=== PATIENT | female | born 1955 | race Caucasian/White ===

== ENCOUNTER 2020-01-31 10:05 | Outpatient (CLI) | payer OTHER, SELFPAY ==
--- NOTE | ~2020-01-31 | XR_ITS ---
XR chest 2V 01/31/2020 10:20 Indication: Bronchitis Procedure: PA and lateral views of the chest Comparison: Comparison to multiple prior studies sequentially, with oldest reviewed study dated 05/31. Findings: No focal air space disease, pulmonary edema, pleural effusion or suspected pneumothorax. He art size normal. Chronic left basilar atelectasis/scarring. Chronic apical pleural thickening/scarrin g. Impression: 1: No acute cardiopulmonary disease. Reviewed, dictated and finalized at location I. Impression: 1: No acute cardiopulmonary disease.
== END 2020-01-31 10:06 | disposition home or self-care (01) ==
LOC: ANHIMG 10:07
PROVIDERS: PCP Family Medicine; Visit Provider Family Medicine
DX: J20.9 Acute bronchitis, unspecified (principal)
CPT/HCPCS: 71046

== ENCOUNTER 2020-06-03 09:08 | Outpatient (CLI) | payer OTHER, SELFPAY ==
--- NOTE | ~2020-06-03 | XR_ITS ---
XR chest 2V DATE: 06/03/2020 09:31 INDICATION: Cough. Bronchitis. TECHNIQUE: PA and lateral views COMPARISON: 01/31/2020 PA and lateral chest FINDINGS: Normal heart size. Aortic calcification and mild unfolding. No hilar or mediastinal enlarge ment. No pulmonary infiltrate or consolidation, pleural effusion or pulmonary vascular congestion or pneumothorax is detected. Diffuse osteopenia. Degenerative changes of the thoracic spine. IMPRESSION: No active cardiopulmonary disease or significant change since 02/17/2020 Reviewed, dictated and finalized at location A. IMPRESSION: No active cardiopulmonary disease or significant change since 2019
[2020-06-03 11:04] LABS: Alanine Aminotransferase 19 U/L (4-35); Albumin Level 4.3 g/dL (3.5-5.1); Alkaline Phosphatase 73 U/L (38-126); Amylase 56 U/L (30-110); Anion Gap 6 mmol/L (8-16); Aspartate Amino Transferase 30 U/L (14-36); Bilirubin,Total 1.2 mg/dL (0.2-1.3); Blood Urea Nitrogen 9 mg/dL (7-17); Calcium 9.5 mg/dL (8.4-10.2); Carbon Dioxide 28 mmol/L (22-30); Chloride 105 mmol/L (98-107); Estimated Glomerular Filt Rate > 60; Glucose 98 mg/dL (65-105); Lipase 21 U/L (23-300); Potassium 4.3 mmol/L (3.4-5.0); Sodium 139 mmol/L (137-145)
[2020-06-06 12:58] LABS: GGT 48 U/L (3-65)
--- NOTE | 2020-06-14 12:09 | WPDSIXMINUTE ---
Six Minute Walk Six Minute Walk: The patients O2 sats started at 96% and dropped as low as 96% Total walk distance 304.8 meters conclusion: This patient does not qualify for home oxygen use.
== END 2020-06-03 09:09 | disposition home or self-care (01) ==
PROVIDERS: PCP Family Medicine; Visit Provider Family Medicine
DX: J44.0 Chronic obstructive pulmonary disease with (acute) lower respiratory infection (principal); J20.9 Acute bronchitis, unspecified; K75.9 Inflammatory liver disease, unspecified
CPT/HCPCS: 36415; 71046; 80053; 82150; 82977; 83690; 94618

== ENCOUNTER 2020-06-05 06:52 | Outpatient (NON) | payer OTHER, SELFPAY ==
[2020-06-05 23:09] LABS: SARS-CoV-2 RNA PCR Negative
== END 2020-06-05 06:53 ==
PROVIDERS: PCP Family Medicine; Visit Provider Family Medicine
DX: R09.89 Other specified symptoms and signs involving the circulatory and respiratory systems (principal); Z20.828 Contact with and (suspected) exposure to other viral communicable diseases
CPT/HCPCS: 87635; C9803; U0003

== ENCOUNTER 2020-07-08 10:34 | Outpatient (NON) | payer OTHER, SELFPAY ==
[2020-07-09 01:06] LABS: SARS-CoV-2 RNA PCR Negative
== END 2020-07-08 10:35 ==
LOC: ANHCOVIDDT 10:35
PROVIDERS: PCP Family Medicine; Visit Provider Family Medicine
DX: R09.89 Other specified symptoms and signs involving the circulatory and respiratory systems (principal); Z20.828 Contact with and (suspected) exposure to other viral communicable diseases
CPT/HCPCS: 87635; C9803; U0003

== ENCOUNTER 2020-09-06 14:24 | Outpatient (CLI) | payer OTHER, SELFPAY ==
--- NOTE | 2020-09-06 | ECHO_ITS ---
Patient Info Name: Aurora Hill Age: 65 years : 1955 Gender: Female Ht: 65 in Wt: 146 lbs BSA: 1.75 m2 HR: 92 bpm BP: 178 / 92 mmHg Technical Quality: Good Exam Date: 09/06/2020 3:11 PM Exam Location: [facility] Patient Status: Outpatient Admit Date: 09/06/2020 Staff Ordering Physician: ManuelNiesha APRN Nickel Plant Operator: Annalee Daniels RDCS Attending Provider: Paddy*Niesha APRN Exam Type: CA echo doppler color flow Study Info Indications - PULM HTN Complete two-dimensional, color flow and Doppler transthoracic echocardiogram is performed. Summary 1. Complete two-dimensional, color flow and Doppler transthoracic echocardiogram is performed. 2. Left ventricular chamber dimension is normal. 3. Left ventricular systolic function is normal, estimated at 60-65%. 4. The left ventricular diastolic function is grade I diastolic dysfunction. 5. E/e' 10 is mildly elevated. 6. There is mild aortic valve sclerosis. 7. No pulmonary hypertension, estimated pulmonary arterial systolic pressure is 34 mmHg. 8. There is trace pulmonic regurgitation. Left Ventricle E/e' 10 is mildly elevated. Left ventricular chamber dimension is normal. Left ventricular systolic function is normal, estimated at 60-65%. The left ventricular diastolic function is grade I diastolic dysfunction. Right Ventricle Right ventricular chamber dimension is normal. Right ventricular systolic function is normal. Left Atria Left atrial chamber dimension is normal. Right Atria Right atrial chamber dimension is normal. Aortic Valve The aortic valve is trileaflet. There is mild aortic valve sclerosis. There is no aortic valve stenosis. There is no aortic valve regurgitation. Pulmonic Valve There is trace pulmonic regurgitation. Mitral Valve There is no mitral valve stenosis. There is no mitral valve regurgitation. Tricuspid Valve There is no tricuspid valve regurgitation. No pulmonary hypertension, estimated pulmonary arterial systolic pressure is 34 mmHg. Pericardium/Pleural There is no pericardial effusion. Inferior Vena Cava Normal inferior vena cava with >50% collapse upon inspiration consistent with normal right atrial pressure, 5 mmHg. Aorta The aortic root size at the sinus of Valsalva is normal. Left Ventricular Outflow Tract Name Value Normal LVOT 2D LVOT Diameter 2.0 cm LVOT Doppler LVOT Peak Gradient 5 mmHg LVOT Mean Gradient 3 mmHg LVOT VTI 21 cm LVOT VTI/AV VTI Ratio 0.9 LVOT Stroke Volume 65 ml LVOT CO 13.5 l/min LVOT CI 7.7 l/min/m2 Pulmonic Valve Name Value Normal PV Doppler PV Peak Gradient
== END 2020-09-06 14:25 | disposition home or self-care (01) ==
PROVIDERS: PCP Family Medicine; Visit Provider Nurse Practitioner Gerontology
DX: I27.20 Pulmonary hypertension, unspecified (principal)
CPT/HCPCS: 93306

== ENCOUNTER 2020-11-20 09:35 | Outpatient (CLI) | payer OTHER, SELFPAY ==
--- NOTE | ~2020-11-20 | XR_ITS ---
XR lumbar spine 6V w bending DATE: 11/20/2020 10:01 INDICATION: Low back pain. Hip, knee pain. TECHNIQUE: AP, lateral, bilateral oblique and coned lateral lumbosacral views. Flexion and extension lateral views. COMPARISON: 05/26/2017 lumbar spine FINDINGS: There is diffuse osteopenia. There is moderate loss of interspace height at L3-4. There is severe degenerative disc disease at the remaining lumbar and lumbosacral interspaces. The de generative disc disease is increased in severity in particular at L1 to and L4-5 since 05/26/2017. There is degenerative change at the apophyseal joints with associated grade 1 anterolisthesis at L4-5 , stable since 05/26/2017. No spondylolysis. No fracture or bone destruction. The lumbar pedicles are intact. No evidence of instability on flexion or extension. The sacroiliac joints are intact. There is extensive calcification of the abdominal aorta and iliac arteries; no evidence of abdominal aortic aneurysm. Status post cholecystectomy. IMPRESSION: Diffuse osteopenia Moderate loss of height at L3-4 interspace on severe degenerative disc disease at the remaining lumba r and lumbosacral interspaces, increased since 05/26/2017 Stable grade 1 anterolisthesis at L4-5 due to degenerative change at the apophyseal joints since 05/26 Reviewed, dictated and finalized at location B. IMPRESSION: Diffuse osteopenia Moderate loss of height at L3-4 interspace on severe degenerative disc disease at the remaining lumbar and lumbosacral interspaces, increased since 05/26/2017 Stable grade 1 anterolisthesis at L4-5 due to degenerative change at the apophy seal joints since 05/26/2017
--- NOTE | ~2020-11-20 | XR_ITS ---
XR knee LT 2V DATE: 11/20/2020 10:01 INDICATION: Left knee pain. No injury. TECHNIQUE: AP and lateral views COMPARISON: None FINDINGS: No fracture or dislocation or joint effusion. No periosteal reaction or bone destruction. There is mild osteoarthritis including mild particular spurring at the medial compartment. No radiopaque intra-articular loose body or chondrocalcinosis. IMPRESSION: Mild osteoarthritis at the medial compartment Reviewed, dictated and finalized at location B.
--- NOTE | ~2020-11-20 | XR_ITS ---
XR hip BI 2V w AP pelvis DATE: 11/20/2020 10:01 INDICATION: Low back pain, left hip pain TECHNIQUE: AP pelvis. AP and lateral views of both hips. COMPARISON: None FINDINGS: Prominent degenerative disc disease at L4-5 and L5-S1. The pubic symphysis and sacroiliac joints are intact. No pelvic fracture or bone destruction. Hip joint spaces are symmetric and well preserved. No fracture, dislocation, avascular necrosis or bruno ne destruction of either hip is detected. IMPRESSION: Prominent degenerative disc disease at L4-5 and L5-S1 No significant abnormality of the pelvis or hips Reviewed, dictated and finalized at location B.
== END 2020-11-20 09:36 | disposition home or self-care (01) ==
PROVIDERS: PCP Family Medicine; Visit Provider Anesthesiology Pain Medicine
DX: M51.37 Other intervertebral disc degeneration, lumbosacral region (principal); M85.88 Other specified disorders of bone density and structure, other site; M17.12 Unilateral primary osteoarthritis, left knee
CPT/HCPCS: 72114; 73521; 73560

== ENCOUNTER → 2020-12-12 07:59 | Outpatient (CLI) | payer OTHER, SELFPAY ==
[2020-12-12 17:41] LABS: SARS-CoV-2 RNA PCR Negative
== END ==
PROVIDERS: PCP Family Medicine; Visit Provider Family Medicine
DX: R68.89 Other general symptoms and signs (principal); Z20.822 Contact with and (suspected) exposure to COVID-19
CPT/HCPCS: C9803; U0003; U0005

== ENCOUNTER 2021-08-20 07:17 | Emergency (ER) | payer OTHER, SELFPAY ==
--- NOTE | ~2021-08-20 | XR_ITS ---
EXAMINATION: XR elbow RT min 3V DATE: 08/20/2021 12:02 INDICATION: Right elbow swelling. TECHNIQUE: 4 views of right elbow were obtained. COMPARISON: None. FINDINGS: Bone alignment is normal. No fracture. Joint spaces are well maintained. There is no elbow joint effusion. There is posterior soft tissue swelling. IMPRESSION: 1. No fracture. Reviewed, dictated and finalized at location A. TIONAL TECHNICAL EDUCATION DIRECTOR IMPRESSION: 1. No fracture.
--- NOTE | ~2021-08-20 | XR_ITS ---
EXAMINATION: XR chest 2V DATE: 08/20/2021 12:02 INDICATION: Swelling. TECHNIQUE: Frontal and lateral views of the chest were obtained. COMPARISON: Chest 2 views 06/03/2020 FINDINGS: There is mild scarring at the lung apices. There is mild atelectasis in the lower lung zone s. No pleural effusion or pneumothorax. The heart size is normal. There are changes of anterior fusio n procedure in cervical spine. IMPRESSION: 1. Mild scarring at the lung apices and mild atelectasis in the lower lung zones. Reviewed, dictated and finalized at location A. R COMMISSIONER IMPRESSION: 1. Mild scarring at the lung apices and mild atelectasis in the lower lung zone s.
--- NOTE | ~2021-08-20 | XR_ITS ---
EXAMINATION: XR foot LT min 3V DATE: 08/20/2021 12:02 INDICATION: Left heel pain. TECHNIQUE: 4 views of left foot were obtained. COMPARISON: None. FINDINGS: Bone alignment is normal. There is an old healed fracture of diaphysis of fifth metatarsal. No acute fracture. There is mild osteoarthritis of first metatarsophalangeal joint. IMPRESSION: 1. No acute fracture. Reviewed, dictated and finalized at location A. LLIGENCE SUPPORT OFFICER IMPRESSION: 1. No acute fracture.
--- NOTE | ~2021-08-20 | US_ITS ---
EXAMINATION: US venous doppler UE RT DATE: 08/20/2021 14:10 INDICATION: Right upper extremity swelling TECHNIQUE: Packer scale images with and without compression and Doppler images of the right upper extre mity veins were obtained. COMPARISON: None. FINDINGS: The right internal jugular vein, subclavian vein, axillary vein, brachial veins, basilic vein, cephal ic vein, radial vein, and ulnar vein are patent. IMPRESSION: 1. Patent right upper extremity veins. No evidence of deep venous thrombosis. Reviewed, dictated and finalized at location A. EM CONFIGURATION SPECIALIST
--- NOTE | ~2021-08-20 | US_ITS ---
EXAMINATION:US venous doppler LE BI INDICATION:Leg swelling TECHNIQUE: Multiple grayscale, color flow and Doppler images of the right and left lower extremity de ep venous systems were obtained and reviewed. COMPARISON:03/13/2013 FINDINGS: The common femoral, superficial femoral and popliteal veins demonstrate normal respiratory variation, augmentation and compressibility. Color flow is also seen within the posterior tibial, pe roneal, greater saphenous and profunda veins. IMPRESSION: 1: No lower extremity deep venous thrombosis. Reviewed, dictated and finalized at location A. ATING SCREEN OPERATOR
[2021-08-20 07:19] VITALS: PULSE 76; RESP 18; TEMP 36.6; O2SAT 95
--- NOTE | 2021-08-20 09:35 | PC.NURSE ---
Pt ambulatory outside to smoke.
[2021-08-20 09:36] VITALS: BP 132/60; PULSE 79; RESP 18; O2SAT 95
--- NOTE | 2021-08-20 11:40 | ECG_ITS ---
Measurements Intervals [place] Rate: 75 P: 70 NH: 121 QRS: 51 QRSD: 90 T: 48 QT: 406 QTc: 454 Interpretive Statements SINUS RHYTHM POSSIBLE LEFT ATRIAL ENLARGEMENT BORDERLINE ECG Electronically Signed On 08-20-2021 13:45:17 STATIONARY EQUIPMENT MECHANIC by Fausto Dacosta D.O.
--- NOTE | 2021-08-20 11:57 | ED.GENADULT ---
HPI - General Adult General Chief complaint: Wound/Laceration Stated complaint: foot wound since wednesday Time Seen by Provider: 08/20/21 11:15 Source: patient and RN notes reviewed Mode of arrival: EMS Limitations: no limitations History of Present Illness HPI narrative: This is a 66 year old female who presents for evaluation of bilateral leg swelling and left heel wound. Patient states she went for evaluation of bilateral feet swelling on Wednesday. She had labs and chest xray performed but she left before she could be treated. She reports her feet swelling has improved but she woke up with blister to her left heel so she called 911. This blister is painful and it is causing radiating pain to left leg. She is also complaining of right elbow swelling and pain without trauma. She denies chest pain, nasuea, vomiting or fever. She is complaining of shortness of breath and she states she has COPD. Related Data Allergies Allergy/AdvReac Type Severity Reaction Status Date / Time linezolid Allergy Intermediate Rash Verified 08/20/21 11:10 amoxicillin Allergy Mild Unknown Verified 08/20/21 11:10 paroxetine Allergy Mild Unknown Verified 08/20/21 11:10 Quinolones Allergy Mild Unknown Verified 08/20/21 11:10 amitriptyline Allergy Unknown Unknown Verified 08/20/21 11:10 ciprofloxacin Allergy Unknown Swelling Verified 08/20/21 11:10 BUPROPION HCL Allergy Unknown Unknown Uncoded 08/20/21 11:10 PROCHLORPERAZINE EDISYLATE Allergy Unknown Unknown Uncoded 08/20/21 11:10 PROCHLORPERAZINE MALEATE Allergy Unknown Unknown Uncoded 08/20/21 11:10 Review of Systems Review of Systems: All systems reviewed & are unremarkable except as noted in HPI and below PMFSH Past Medical History Medical History (Updated 08/20/21 @ 15:11 by Michelle Toribio MD) Atrial fibrillation Emphysema/COPD Hepatitis C Family History Family History (Updated 11/19/11 @ 09:17 by DOCTOR UNKNOWN) Other Diabetes mellitus Family history of arthritis Family history of cardiovascular disease Hypertension Social History Social History (Updated 08/20/21 @ 15:05 by Michelle Toribio MD) Smoking status: Current every day smoker Alcohol intake: never Exam Const: General: no acute distress and alert Orientation/consciousness: patient oriented x3 HENMT: Head: normocephalic and atraumatic Ears: TM's normal bilaterally Face and sinus: face symmetric Mouth: Yes Normal oral and palatal mucosa present, Yes lip normal, Yes oropharynx normal and Yes moist mucous membranes Throat: uvula midline Eyes: EOM: EOMs intact bilaterally Chest: Chest palpation & inspection: normal inspection of the chest Resp: Effort & Inspection: normal respiratory effort and no retractions Auscultation: clear to auscultation bilaterally Cardio: Rate: regular rate Rhythm: regular rhythm Heart sounds: no murmurs GI: GI Palp: Yes Soft to palpation, No Tenderness to palpation present (GI) and No Guarding due to palpation present (GI) Auscultation: normal bowel sounds Skin: Other: left heel 6 cm intact blister, appears serous, no surrounding erythema Neuro: General: patient oriented x3, moves all extremities and CN's II-XI intact bilaterally Extrem: General: edema bilateral (mild lower extremity; right elbow with mild edema ) Other: left heell with intact blister, no surround erythma Psych: Mental Status: mental status grossly normal Affect: normal affect Course Reevaluation(s) Reevaluation #1: I reviewed with patient labs and imaging. No dvt found, no congestive heart failure. She is already on antibiotics but she is unable to state name. She will continue ointment given as well. Date: 08/20/21 Time: 15:04 Vital Signs Vital signs: Vital Signs Temperature 98 F 08/20/21 07:19 Pulse Rate 76 08/20/21 07:19 Respiratory Rate 18 08/20/21 07:19 Pulse Oximetry 95 08/20/21 07:19 Temperature 98 F 08/20/21 07:19 Pulse Rate 79 08/20/21 09:36 Re
[2021-08-20 12:17] LABS: Alveolar/Arterial O2 Gradient 41.6 mmHg; Base Excess ABG -0.2 mEq/l (+/-2.0); Carboxyhemoglobin 6.5 % THb (0-2.0); Fractional Inspired Oxygen 21 %; HCO3 ABG 24.4 mEq/l (22.0-26.0); Methemoglobin ABG 0.1 %THb (0-1.5); Oxygen Saturation ABG 91.3 % (95.0-100.0); PCO2 ABG 39.9 mmHg (35.0-45.0); PO2 ABG 60.4 mmHg (80.0-100.0); PO2 FiO2 Ratio Arterial Blood 2.88 %; Reduced Hemoglobin 8.3 %THb (0-5.0); Total Hemoglobin 13.4 g/dL (12.0-18.0); pH ABG 7.405 (7.350-7.450)
[2021-08-20 12:19] LABS: Device ROOM AIR; Modified Allen's Test Pass; Oxyhemoglobin 85.1 % THb (90.0-100.0); Site Drawn RIGHT RADIAL
--- NOTE | 2021-08-20 12:42 | PC.NURSE ---
Pt requesting her home valium and gabapentin. States she is out of these medications and hasn't had them in a few days. MD Toribio made aware.
[2021-08-20 12:43] LABS: Basophils Percent Auto 0.4 % (0.2-1.2); Eosinophils Absolute Auto 0.2 K/mm3 (0-0.3); Eosinophils Percent Auto 3.6 % (0-4.4); Hematocrit 40.6 % (37.0-47.0); Hemoglobin 13.5 g/dL (12.0-15.0); Immature Granulocyte Absolute 0.08 K/mm3 (0.00-0.031); Immature Granulocyte Percent A 1.5 % (0-0.5); Immature Platelet Fraction Pct 10.2 % (0.9-11.2); Lymphocytes Absolute Auto 0.93 K/mm3 (0.9-3.2); Lymphocytes Percent Auto 17.6 % (18.3-44.2); Mean Corpuscular HGB Conc 33.3 g/dl (32-36); Mean Corpuscular Volume 93.3 fl (80-100); Mean Platelet Volume 12.4 fl (7.4-10.4); Monocytes Absolute Auto 0.4 K/mm3 (0.1-0.6); Neutrophils Absolute Auto 3.6 K/mm3 (1.3-6.7); Neutrophils Percent Auto 68.9 % (45.5-73.1); Platelet Count Result 99 k/mm3 (150-375); Red Blood Count 4.35 M/mm3 (4.2-5.4); Red Cell Distribution Width 13.3 % (11.5-14.5); White Blood Count 5.3 K/mm3 (4.5-10.0)
[2021-08-20 12:44] LABS: INR 1.1; Prothrombin Time 13.6 Seconds (11.1-14.7)
[2021-08-20 12:45] LABS: Partial Thromboplastin Time 28.4 SECONDS (22.3-36.8)
[2021-08-20 12:46] LABS: Alanine Aminotransferase 47 U/L (4-35); Albumin Level 4.3 g/dL (3.5-5.1); Alkaline Phosphatase 105 U/L (38-126); Anion Gap 5 mmol/L (8-16); Aspartate Amino Transferase 84 U/L (14-36); Bilirubin,Total 1.4 mg/dL (0.2-1.3); Blood Urea Nitrogen 14 mg/dL (7-17); Carbon Dioxide 28 mmol/L (22-30); Chloride 99 mmol/L (98-107); Estimated CRCL calculation 60 ml/min; Estimated Glomerular Filt Rate > 60; Glucose 132 mg/dL (65-110); Potassium 4.3 mmol/L (3.4-5.0); Sodium 132 mmol/L (137-145)
[2021-08-20 12:52] LABS: NT Pro B Type Natriuretic Pept 44 pg/mL (5-100)
[2021-08-20 13:28] LABS: Add Urine Microscopic? YES; Appearance Urine Clear (Clear); Bilirubin Urine Negative (Negative); Blood Urine Negative (Negative); Color Urine Yellow (Yellow); Glucose Urine UA Negative (Negative); Ketones Urine Negative (Negative); Leukocyte Esterase Ur Negative LEU/UL (Negative); Mucus Urine Rare /lpf; Nitrate Urine Negative (Negative); Protein Urine Negative (Negative); RBC Urine 0-2 /hpf (0-2); Squamous Epithelial Cell Urine Few /hpf (Few); WBC Urine 0-3 /hpf
== END 2021-08-20 15:41 | disposition home or self-care (01) ==
PROVIDERS: Emergency Provider General Practice
DX: R60.0 Localized edema (principal); R74.01 Elevation of levels of liver transaminase levels; R23.8 Other skin changes; I48.91 Unspecified atrial fibrillation; J43.9 Emphysema, unspecified; F17.200 Nicotine dependence, unspecified, uncomplicated; R94.31 Abnormal electrocardiogram [ECG] [EKG]
CPT/HCPCS: 36415; 36600; 71046; 73080; 73630; 80053; 81001; 82375; 82805; 83050; 83880; 85025; 85055; 85610; 85730; 86140; 93005; 93970; 93971; 99284

== ENCOUNTER 2021-10-21 16:04 | Emergency (ER) | payer OTHER, SELFPAY ==
[2021-10-21] VITALS (7 sets, daily range): BP systolic 150–154; BP diastolic 78–92; PULSE 90–112; RESP 16–26; TEMP 36.8–37.1; O2SAT 92–98
--- NOTE | ~2021-10-21 | XR_ITS ---
XR chest 2V 10/21/2021 17:17 Indication: Shortness of breath Procedure: PA and lateral views of the chest Comparison: Comparison to multiple prior studies sequentially, with oldest reviewed study dated 05/30. Findings: There are chronic interstitial changes of the lower lungs. No acute focal pneumonia, edema or effusion. There are surgical changes at the cervicothoracic junction. Heart size is normal. Impression: 1: No acute cardiopulmonary disease. Reviewed, dictated and finalized at location B. EUR/MASSEUSE Impression: 1: No acute cardiopulmonary disease.
[2021-10-21] MEDS: diazePAM (*CRX) 5 MG TABLET PO (17:21)
[2021-10-21 17:24] LABS: Basophils Percent Auto 0.5 % (0.2-1.2); Eosinophils Absolute Auto 0.1 K/mm3 (0-0.3); Eosinophils Percent Auto 2.3 % (0-4.4); Hematocrit 40.9 % (37.0-47.0); Hemoglobin 13.7 g/dL (12.0-15.0); Immature Granulocyte Absolute 0.01 K/mm3 (0.00-0.031); Immature Granulocyte Percent A 0.3 % (0-0.5); Lymphocytes Absolute Auto 0.51 K/mm3 (0.9-3.2); Mean Corpuscular HGB Conc 33.5 g/dl (32-36); Mean Corpuscular Hemoglobin 29.8 pg (26-34); Mean Corpuscular Volume 89.1 fl (80-100); Mean Platelet Volume 12.2 fl (7.4-10.4); Monocytes Absolute Auto 0.1 K/mm3 (0.1-0.6); Monocytes Percent Auto 2.8 % (2.6-8.5); Neutrophils Absolute Auto 3.2 K/mm3 (1.3-6.7); Neutrophils Percent Auto 81.1 % (45.5-73.1); Platelet Count Result 100 k/mm3 (150-375); Red Blood Count 4.59 M/mm3 (4.2-5.4); Red Cell Distribution Width 13.5 % (11.5-14.5); White Blood Count 3.9 K/mm3 (4.5-10.0)
[2021-10-21 17:37] LABS: Alanine Aminotransferase 16 U/L (4-35); Albumin Level 4.4 g/dL (3.5-5.1); Alkaline Phosphatase 116 U/L (38-126); Anion Gap 7 mmol/L (8-16); Aspartate Amino Transferase 30 U/L (14-36); Bilirubin,Total 0.6 mg/dL (0.2-1.3); Blood Urea Nitrogen 15 mg/dL (7-17); Carbon Dioxide 25 mmol/L (22-30); Chloride 107 mmol/L (98-107); Estimated CRCL calculation 56 ml/min; Estimated Glomerular Filt Rate > 60; Glucose 127 mg/dL (65-110); Potassium 3.9 mmol/L (3.4-5.0); Sodium 139 mmol/L (137-145)
--- NOTE | 2021-10-21 18:29 | ED.SOB ---
HPI - SOB/Dyspnea General Chief Complaint: Shortness of Breath/Dyspnea Stated Complaint: SOB Time Seen by Provider: 10/21/21 16:37 History of Present Illness HPI Narrative: Patient is a 66-year-old female who presents to the ER with shortness of breath. Patient reports she began having a coughing attack, this happened after taking a hit off of a joint. She then began having difficulty breathing and became very anxious. She thinks she may have had a panic attack. Denies runny nose or sore throat. She recently completed a 5-day course of 20 mg prednisone. Also completes oral antibiotics for which she does not know the name of. Reports she been feeling well until having a coughing attack. In route EMS gave patient an albuterol nebulizer, Decadron 10 mg, and 2 mg of magnesium. Per EMS patient was tripoding and satting 80% on room air. Related Data Home Medications Medication Instructions Recorded Confirmed buprenorphine-naloxone film 10/21/21 diazepam [Valium] 10 mg PO BID 10/21/21 gabapentin 600 mg PO TID 10/21/21 levothyroxine 75 mcg PO DAILY 10/21/21 Allergies Allergy/AdvReac Type Severity Reaction Status Date / Time linezolid Allergy Intermediate Rash Verified 10/21/21 16:12 amoxicillin Allergy Mild Unknown Verified 10/21/21 16:12 paroxetine Allergy Mild Unknown Verified 10/21/21 16:12 Quinolones Allergy Mild Unknown Verified 10/21/21 16:12 amitriptyline Allergy Unknown Unknown Verified 10/21/21 16:12 ciprofloxacin Allergy Unknown Swelling Verified 10/21/21 16:12 BUPROPION HCL Allergy Unknown Unknown Uncoded 10/21/21 16:12 PROCHLORPERAZINE EDISYLATE Allergy Unknown Unknown Uncoded 10/21/21 16:12 PROCHLORPERAZINE MALEATE Allergy Unknown Unknown Uncoded 10/21/21 16:12 Review of Systems Review of Systems: All systems reviewed & are unremarkable except as noted in HPI and below Constitutional: Constitutional: Denies chills, Denies fever(s) and Denies weakness ENT: Denies nasal congestion and Denies sore throat Cardiovascular: Cardiovascular: Denies chest pain, Denies rapid heart rate and Denies radiating jaw, neck or arm pain Respiratory: Respiratory: Reports cough, Reports dyspnea and Reports wheezing Gastrointestinal: Gastrointestinal: Denies abdominal pain, Denies nausea and Denies vomiting Psychiatric: Psychiatric: Reports anxiety PMFSH Past Medical History Medical History (Updated 10/21/21 @ 19:07 by Angus Ji MD) Atrial fibrillation COPD (chronic obstructive pulmonary disease) Emphysema/COPD Hepatitis C Hypertension Osteoporosis Surgical History Surgical History (Updated 10/21/21 @ 18:39 by Angus Ji MD) History of cholecystectomy History of hysterectomy History of tonsillectomy Family History Family History (Updated 11/19/11 @ 09:17 by DOCTOR UNKNOWN) Other Diabetes mellitus Family history of arthritis Family history of cardiovascular disease Hypertension Social History Social History (Updated 10/21/21 @ 18:44 by Angus Ji MD) Smoking status: Current every day smoker Alcohol intake: never Substance use type: marijuana Exam Narrative: GENERAL: Chronically ill-appearing, well-nourished, and in no acute distress. HEAD: Normocephalic, atraumatic. ENT: Mucous membranes moist. CHEST: Clear to auscultation. No respiratory distress. HEART: Regular rate and rhythm. Normal peripheral pulses. ABDOMEN: Soft, nontender, nondistended. EXTREMITIES: Normal range of motion. No edema. SKIN: Warm, dry, no rash. NEURO: Alert and oriented x3. PSYCH: Normal mood and affect. Course Reevaluation(s) Reevaluation #1: Patient resting comfortably. After nebulizer treatment patient is up and ambulatory with pulse oximeter monitor satting 93%. Patient feels comfortable with discharge. Date: 10/21/21 Time: 19:05 Vital Signs Vital signs: Vital Signs Temperature 98.2 F 10/21/21 16:09 Pulse Rate 105 H 10/21/21 16:09 Respiratory Rate 26 H
[2021-10-21] MEDS: IPRATROPIUM BR 0.02% INH SOLN 0.5 MG/2.5 ML VIAL INHALATION (18:42)
[2021-10-21] MEDS: ALBUTEROL SULFATE NEB 2.5 MG/0.5 ML INH 5 MG INHALATION (18:42)
== END 2021-10-21 19:38 | disposition home or self-care (01) ==
PROVIDERS: Emergency Provider Emergency Medicine; PCP Internal Medicine
DX: J44.1 Chronic obstructive pulmonary disease with (acute) exacerbation (principal); I48.91 Unspecified atrial fibrillation; Z86.19 Personal history of other infectious and parasitic diseases; I10 Essential (primary) hypertension; M81.0 Age-related osteoporosis without current pathological fracture; F17.200 Nicotine dependence, unspecified, uncomplicated
CPT/HCPCS: 36415; 71046; 80053; 85025; 94640; 99283; A9270

== ENCOUNTER 2021-12-19 11:58 | Outpatient (CLI) | payer OTHER, SELFPAY ==
[2021-12-19 12:39] LABS: Alanine Aminotransferase 17 U/L (4-35); Albumin Level 4.6 g/dL (3.5-5.1); Alkaline Phosphatase 99 U/L (38-126); Anion Gap 5 mmol/L (8-16); Aspartate Amino Transferase 27 U/L (14-36); Bilirubin,Total 0.8 mg/dL (0.2-1.3); Blood Urea Nitrogen 13 mg/dL (7-17); Calcium 9.3 mg/dL (8.4-10.2); Carbon Dioxide 29 mmol/L (22-30); Chloride 103 mmol/L (98-107); Estimated Glomerular Filt Rate > 60; Glucose 111 mg/dL (65-110); Potassium 4.6 mmol/L (3.4-5.0); Sodium 137 mmol/L (137-145)
[2021-12-19 13:01] LABS: Basophils Absolute Auto 0.1 K/mm3 (0.0-0.1); Basophils Percent Auto 0.9 % (0.2-1.2); Eosinophils Absolute Auto 0.2 K/mm3 (0-0.3); Eosinophils Percent Auto 4.3 % (0-4.4); Hematocrit 44.3 % (37.0-47.0); Hemoglobin 14.7 g/dL (12.0-15.0); Immature Granulocyte Absolute 0.03 K/mm3 (0.00-0.031); Immature Granulocyte Percent A 0.6 % (0-0.5); Immature Platelet Fraction Pct 7.3 % (0.9-11.2); Lymphocytes Absolute Auto 1.51 K/mm3 (0.9-3.2); Lymphocytes Percent Auto 28.4 % (18.3-44.2); Mean Corpuscular HGB Conc 33.2 g/dl (32-36); Mean Corpuscular Hemoglobin 29.5 pg (26-34); Mean Platelet Volume 11.4 fl (7.4-10.4); Monocytes Absolute Auto 0.5 K/mm3 (0.1-0.6); Monocytes Percent Auto 9.2 % (2.6-8.5); Neutrophils Percent Auto 56.6 % (45.5-73.1); Platelet Count Result 128 k/mm3 (150-375); Red Blood Count 4.98 M/mm3 (4.2-5.4); White Blood Count 5.3 K/mm3 (4.5-10.0)
[2021-12-19 13:06] LABS: Free T4 Free Thyroxine 1.69 ng/mL (0.78-2.19); Vitamin D 25 Hydroxy 36.8 ng/mL
[2021-12-19 13:09] LABS: Total Triiodothyronine (T3) 1.39 NG/ML (0.97-1.69)
== END 2021-12-19 11:59 | disposition home or self-care (01) ==
LOC: ANHLAB 12:03
PROVIDERS: PCP Internal Medicine; Visit Provider Family Medicine
DX: E78.5 Hyperlipidemia, unspecified (principal); E55.9 Vitamin D deficiency, unspecified; I10 Essential (primary) hypertension; Z13.0 Encounter for screening for diseases of the blood and blood-forming organs and certain disorders involving the immune mechanism; Z13.6 Encounter for screening for cardiovascular disorders; Z13.220 Encounter for screening for lipoid disorders; Z13.29 Encounter for screening for other suspected endocrine disorder
CPT/HCPCS: 36415; 80053; 82306; 84439; 84443; 84480; 85025; 85055

== ENCOUNTER 2022-03-19 10:26 | Emergency (ER) | payer MEDICARE, MEDICAID, SELFPAY ==
--- NOTE | ~2022-03-19 | XR_ITS ---
XR foot RT min 3V DATE: 03/19/2022 12:06 INDICATION: Right foot pain for 2 weeks TECHNIQUE: 4 views COMPARISON: None FINDINGS: No fracture or dislocation, periosteal reaction or bone destruction. IMPRESSION: No significant abnormality Reviewed, dictated and finalized at location B. IMPRESSION: No significant abnormality
--- NOTE | 2022-03-19 10:27 | ED.LOWEXIN ---
HPI - Extremity Injury (Lower) General Chief Complaint: Extremity Injury, Lower Stated Complaint: right foot injury Time Seen by Provider: 03/19/22 10:27 Source: patient Mode of arrival: ambulatory Limitations: no limitations History of Present Illness HPI Narrative: Ms. Hill is a 67-year-old female patient presenting to the clinic today with complaints of right foot pain/injury. She reports she fell approximately 2 weeks ago and had a lot of swelling and pain in the foot. Reports that the swelling has gone down but she is still having a lot of discomfort to the bottom and top of her foot while walking. She would like to have an x-ray done to make sure is not broken. Related Data Home Medications Medication Instructions Recorded Confirmed buprenorphine 8 mg-naloxone 2 mg 1 film sublingual USEASDIRECTD 10/21/21 03/19/22 sublingual film diazepam 10 mg tablet (Valium) 10 mg PO BID 10/21/21 03/19/22 gabapentin 600 mg tablet 600 mg PO TID 10/21/21 03/19/22 levothyroxine 75 mcg tablet 75 mcg PO DAILY 10/21/21 03/19/22 albuterol sulfate 90 mcg/actuation 90 mcg inhalation USEASDIRECTD 03/19/22 03/19/22 aerosol inhaler aspirin 81 mg tablet 81 mg PO DAILY 03/19/22 03/19/22 glycopyrrolate 9 mcg-formoterol 1 inh inhalation USEASDIRECTD 03/19/22 03/19/22 4.8 mcg HFA aerosol inhaler (Bevespi Aerosphere) Allergies Allergy/AdvReac Type Severity Reaction Status Date / Time linezolid Allergy Intermediate Rash Verified 03/19/22 10:39 amoxicillin Allergy Mild Unknown Verified 03/19/22 10:39 paroxetine Allergy Mild Unknown Verified 03/19/22 10:39 Quinolones Allergy Mild Unknown Verified 03/19/22 10:39 amitriptyline Allergy Unknown Unknown Verified 03/19/22 10:39 ciprofloxacin Allergy Unknown Swelling Verified 03/19/22 10:39 BUPROPION HCL Allergy Unknown Unknown Uncoded 03/19/22 10:39 PROCHLORPERAZINE EDISYLATE Allergy Unknown Unknown Uncoded 03/19/22 10:39 PROCHLORPERAZINE MALEATE Allergy Unknown Unknown Uncoded 03/19/22 10:39 Review of Systems Review of Systems: Pertinent positives per HPI. Patient denies any fever, chills, rash, headache, visual changes, dizziness, cough, runny nose, sore throat, shortness of breath, chest pain, palpitations, nausea, vomiting, diarrhea, constipation, abdominal pain, or any urinary issues. [facility], [facility] Past Medical History Medical History Atrial fibrillation COPD (chronic obstructive pulmonary disease) Emphysema/COPD Hepatitis C Hypertension Osteoporosis Surgical History Surgical History History of cholecystectomy History of hysterectomy History of tonsillectomy Family History Family History Other Diabetes mellitus Family history of arthritis Family history of cardiovascular disease Hypertension Social History Social History Smoking status: Current every day smoker Alcohol intake: never Substance use type: marijuana Comments At the time of my signature, I reviewed and agree with the nursing past medical, surgical, social, and family history. There is no relevant family history pertinent to the patient complaint. Exam Narrative: General: Well-developed, well nourished, in no apparent distress Head: Normocephalic, atraumatic. Cardio: Regular rate and rhythm, s1 and s2 normal, no murmur appreciated. Resp: Clear to auscultation bilaterally, no rhonchi, rales, wheezing or rubs. Musculoskeletal: No deformity, tender to palpation over the mid dorsal and distal foot, tenderness to palpation also to the plantar arch of the foot midfoot, grossly normal range of motion, muscle strength strong and equal, peripheral pulse strong, no edema, no cyanosis, normal gait and station Course Course Emergency Course: Portions of this record m
[2022-03-19 10:36] VITALS: BP 155/85; PULSE 81; RESP 12; TEMP 37.7; O2SAT 94
--- NOTE | 2022-03-19 11:03 | PC.NURSE ---
1100 Patient left facility to obtain xray at [facility] as xray not working at this facility; patient left ambulatory with christine wrap to right foot. Patient report called to ADALGISA Rebolledo at [facility].
== END 2022-03-19 12:40 | disposition home or self-care (01) ==
PROVIDERS: Emergency Provider Nurse Practitioner Family; PCP Orthopaedic Surgery Orthopaedic Trauma
DX: M79.671 Pain in right foot (principal); F17.200 Nicotine dependence, unspecified, uncomplicated; I48.91 Unspecified atrial fibrillation; J44.9 Chronic obstructive pulmonary disease, unspecified; I10 Essential (primary) hypertension; M81.0 Age-related osteoporosis without current pathological fracture; Z86.19 Personal history of other infectious and parasitic diseases
CPT/HCPCS: 73630; 99213; G0463

== ENCOUNTER 2022-06-18 13:06 | Outpatient (CLI) | payer MEDICARE, MEDICAID, SELFPAY ==
--- NOTE | ~2022-06-18 | CT_ITS ---
EXAMINATION: CT brain wo con DATE: 06/18/2022 14:16 INDICATION: Loss of balance. Head injury. TECHNIQUE: Computed tomography (CT) of the head was performed without intravenous contrast. The mA wa s adjusted according to patient size. Iterative reconstruction technique was employed. The dose-lengt h product was 529.67 mGy-cm. COMPARISON: Head CT 01/22/2017 FINDINGS: There are scattered areas of low attenuation in the cerebral white matter. There is no intr acranial hemorrhage, acute infarction, or abnormal intracranial mass lesion. The ventricles are ed l in size. The orbits are normal. The paranasal sinuses are clear. The mastoid air cells are normal. IMPRESSION: 1. Worsened extensive nonspecific cerebral white matter disease, which likely represents chronic smal l vessel ischemic disease. Reviewed, dictated and finalized at location A. IMPRESSION: 1. Worsened extensive nonspecific cerebral white matter disease, which likely r epresents chronic small vessel ischemic disease.
--- NOTE | ~2022-06-18 | US_ITS ---
EXAMINATION: US carotid duplex BI DATE: 06/18/2022 14:16 INDICATION: Imbalance. Incoordination. TECHNIQUE: Grayscale, color Doppler, and pulsed Doppler images of the cervical carotid arteries were obtained. The degree of vessel stenosis is placed in one of the following categories: normal, <50%, 5 0-69%, >=70% but less than near-occlusion, near-occlusion, or total occlusion. Note that percent sten osis relative to normal distal artery lumen diameter is indirectly measured from velocity measurement s as described by Derrek, et al. Radiology 2003; 229:340-346. Notes: Normal: Peak systolic velocity <125 centimeters/sec and no plaque <50%. Peak systolic velocity <125 ( EDV <40; ICA/CCA PSV ratio <2.0; used these factors only a tandem lesions or low cardiac output or co ntralateral disease) 50-69 %: PSV 125-230 (EDV 40-100; ratio 2-4) >= 70% but less than near occlusion: PSV greater than 230 (EDV > 100; ratio> 4.0) Near Occlusion: PSV that is variable; markedly narrowed lumen Occlusion: Absent flow on color/spectral Doppler and no lumen on mcmullen scale. COMPARISON: Ultrasound dated 12/20/2009. FINDINGS: RIGHT: The right common carotid artery (CCA) peak systolic velocity (PSV) is 72 cm/s. The right internal car otid artery (ICA) PSV is 113 cm/s. The right ICA end-diastolic velocity (EDV) is 28 cm/s. The right I CA/CCA PSV ratio is 1.6. The external carotid artery (ECA) PSV is 284 cm/s. There is antegrade flow i n the right vertebral artery. LEFT: The left CCA PSV is 71 cm/s. The left ICA PSV is 109 cm/s. The left ICA EDV is 36 cm/s. The left ICA/ CCA PSV ratio is 1.5. The ECA PSV is 62 cm/s. There is antegrade flow in the left vertebral artery. IMPRESSION: 1. Less than 50% stenosis in the right internal carotid artery by sonographic criteria. 2. Less than 50% stenosis in the left internal carotid artery by sonographic criteria. Reviewed, dictated and finalized at location A. IMPRESSION: 1. Less than 50% stenosis in the right internal carotid artery by sonographic c maicol. 2. Less than 50% stenosis in the left internal carotid artery by sonographic subhash teresa.
== END 2022-06-18 13:07 | disposition home or self-care (01) ==
PROVIDERS: PCP Internal Medicine; Visit Provider Internal Medicine
DX: R26.89 Other abnormalities of gait and mobility (principal); R27.9 Unspecified lack of coordination; M54.2 Cervicalgia; M54.50 Low back pain, unspecified; M25.562 Pain in left knee; R93.0 Abnormal findings on diagnostic imaging of skull and head, not elsewhere classified; I65.23 Occlusion and stenosis of bilateral carotid arteries
CPT/HCPCS: 70450; 93880

== ENCOUNTER 2022-06-26 09:39 | Outpatient (CLI) | payer MEDICARE, MEDICAID, SELFPAY ==
--- NOTE | ~2022-06-26 | XR_ITS ---
EXAMINATION: XR knee LT 2V DATE: 06/26/2022 10:29 INDICATION: Left knee pain. TECHNIQUE: 2 views of left knee were obtained. COMPARISON: Left knee radiographs 11/20/2020 FINDINGS: There is a nondisplaced oblique fracture extending from medial tibial plateau to lateral ti bial metaphysis. There is sclerosis and early callus formation at the fracture line. Again seen is an old healed fracture deformity of neck of proximal fibula. There is mild tricompartmental osteoarthri tis of the knee. No knee joint effusion. IMPRESSION: 1. Healing fracture of proximal tibia. 2. Mild left knee osteoarthritis. Reviewed, dictated and finalized at location A.
--- NOTE | ~2022-06-26 | XR_ITS ---
EXAMINATION: XR cervical spine 4-5V DATE: 06/26/2022 10:28 INDICATION: Neck pain. TECHNIQUE: 4 views of cervical spine were obtained. COMPARISON: None. FINDINGS: Bone alignment is normal. There changes of anterior fusion procedure from C4 to C7 with C6 corpectomy, interbody devices, and anterior plate and screws. Vertebral body heights are normal. Ther e is mildly decreased disc height at C3-C4. There is multilevel facet joint osteoarthritis, moderate to severe on the left at C2-C3 and C3-C4. No central canal stenosis or prevertebral soft tissue swell ing. IMPRESSION: 1. Anterior fusion procedure from C4 to C7. 2. Mild cervical spondylosis. Reviewed, dictated and finalized at location A.
--- NOTE | ~2022-06-26 | XR_ITS ---
EXAMINATION: XR lumbar spine 6V w bending DATE: 06/26/2022 10:29 INDICATION: Chronic low back pain. TECHNIQUE: 6 views of lumbar spine including flexion and extension views were obtained. COMPARISON: Lumbar spine radiographs 11/20/2020 FINDINGS: There is 11 degrees dextroscoliosis of lumbar spine. There is 6 mm anterolisthesis of L4 on L5. The spine is hypomobile with flexion and extension. Vertebral body heights are normal. There is severely decreased disc height at L1-L2, moderately decreased disc height at L2-L3 and L3-L4, and sev erely decreased disc height at L4-L5 and L5-S1. There is multilevel facet joint osteoarthritis, sever e bilaterally at L4-L5 and L5-S1. Surgical clips in the right upper quadrant are likely from cholecys tectomy. IMPRESSION: 1. Severe lumbar spondylosis. 2. Lumbar dextroscoliosis. Reviewed, dictated and finalized at location A.
--- NOTE | ~2022-06-26 | XR_ITS ---
EXAMINATION: XR ankle LT min 3V DATE: 06/26/2022 10:29 INDICATION: Left ankle pain. TECHNIQUE: 4 views of left ankle were obtained. COMPARISON: None. FINDINGS: Bone alignment is normal. No fracture. Joint spaces are well maintained. There is ankle sof t tissue swelling. IMPRESSION: 1. No fracture. Reviewed, dictated and finalized at location A. IMPRESSION: 1. No fracture.
== END 2022-06-26 09:40 | disposition home or self-care (01) ==
PROVIDERS: PCP Internal Medicine; Visit Provider Internal Medicine
DX: M25.572 Pain in left ankle and joints of left foot (principal); M47.896 Other spondylosis, lumbar region; M17.12 Unilateral primary osteoarthritis, left knee; S82.102D Unspecified fracture of upper end of left tibia, subsequent encounter for closed fracture with routine healing; X58.XXXD Exposure to other specified factors, subsequent encounter; Z98.1 Arthrodesis status; M47.892 Other spondylosis, cervical region
CPT/HCPCS: 72050; 72114; 73560; 73610

== ENCOUNTER 2022-07-21 11:09 | Outpatient (CLI) | payer MEDICARE, MEDICAID, SELFPAY ==
--- NOTE | ~2022-07-21 | US_ITS ---
EXAMINATION:US venous doppler LE BI INDICATION:Left leg swelling TECHNIQUE: Multiple grayscale, color flow and Doppler images of the right and left lower extremity de ep venous systems were obtained and reviewed. COMPARISON:Ultrasound dated 08/20/2021 FINDINGS: The common femoral, superficial femoral and popliteal veins demonstrate normal respiratory variation, augmentation and compressibility. Color flow is also seen within the posterior tibial, pe roneal, greater saphenous and profunda veins. IMPRESSION: 1: No lower extremity deep venous thrombosis. Reviewed, dictated and finalized at location B. 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
== END 2022-07-21 11:10 | disposition home or self-care (01) ==
PROVIDERS: PCP Internal Medicine; Visit Provider Internal Medicine
DX: M79.89 Other specified soft tissue disorders (principal)
CPT/HCPCS: 93970

== ENCOUNTER 2022-10-30 14:26 | Outpatient (CLI) | payer MEDICARE, MEDICAID, SELFPAY ==
--- NOTE | ~2022-10-30 | CT_ITS ---
EXAMINATION: CT tibia/fibula LT wo con DATE: 10/30/2022 14:53 INDICATION: Left leg fracture. TECHNIQUE: Computed tomography (CT) of the left tibia and fibula was performed without intravenous co ntrast. Automated exposure control and iterative reconstruction technique were employed. The dose-carmine gth product was 1006.56 mGy-cm. COMPARISON: Left knee radiographs 06/26/2022 FINDINGS: Bone alignment is normal. There is a stellate fracture of the cortex of tibial diaphysis th at spirals around the shaft and spans 27.5 cm proximal to distal with periosteal new bone formation. There is moderate osteoarthritis of medial compartment and mild osteoarthritis of lateral and patello femoral compartments. There is a small knee joint effusion. IMPRESSION: 1. Healing fracture of tibial diaphysis. 2. Moderate left knee osteoarthritis. 3. Small left knee joint effusion. Reviewed, dictated and finalized at location A. 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
== END 2022-10-30 14:27 | disposition home or self-care (01) ==
PROVIDERS: PCP Internal Medicine; Visit Provider Orthopaedic Surgery
DX: S82.202D Unspecified fracture of shaft of left tibia, subsequent encounter for closed fracture with routine healing (principal); X58.XXXD Exposure to other specified factors, subsequent encounter; M25.462 Effusion, left knee; M17.12 Unilateral primary osteoarthritis, left knee
CPT/HCPCS: 73700

== ENCOUNTER 2025-04-22 17:52 | Inpatient (IN) | payer MEDICARE, MEDICAID, SELFPAY ==
--- OUTSIDE RECORDS SUMMARY | 2019-03-06 09:41 | XMS_ITS | Continuity of Care Document ---
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 Name Role Phone Ja Hair MD Unavailable Unavailable Allergies, Adverse Reactions, Alerts Substance Reaction Status Criticality morphine Active No Information amoxicillin Active No Information CIPROFLOXACIN HCL Active No Informa tion ciprofloxacin Active No Information Medications Medication Instructions Dosage Effective Dates (start - stop) Status Comments Incruse Ellipta 62.5 mcg/actuation powder for inhalation inhale 1 puff by inhalation route every day at the same time each day 62.5 MCG - Active Xanax 1 mg tablet take 1 tablet by oral route 3 times every day 1 MG - Active avoid driving or operate machines Percocet 10 mg-325 mg tablet take 1 tablet by oral route 3 times every day as needed as needed 1 tablet - Active PRn for pain, avoid driving or operate machines [place] Choice Nebulizer as directed - Active please dispens e whichever brand insurance cover albuterol sulfate 2.5 mg/3 mL (0.083 %) solution for nebulization inhale 3 milliliter (2.5MG) by nebulization route every 6 hours as needed 2.5 MG - Active PRN for sob Vistaril 50 mg capsule take 1 capsule by oral route every bedtime 50 MG - Active Zantac 300 mg tablet take 1 tablet by oral route every day at bedtime - Active Ventolin HFA 90 mcg/actuation aerosol inhaler inhale 2 puff by inhalation route every 4 - 6 hours as needed - Active Norvasc 10 mg tablet take 1 tablet (10MG) by oral route every day 10 MG - Active Procedures Procedure Date OFFICE/OUTPATIENT VISIT, EST PREV VISIT, EST, AGE 40-64 OFFICE/OUTPATIENT VISIT, EST OFFICE/OUTPATIENT VISIT, EST OFFICE/OUTPATIENT VISIT, EST OFFICE/OUTPATIENT VISIT, EST OFFICE/OUTPATIENT VISIT, EST PREV VISIT, EST, AGE 40-64 OFFICE/OUTPATIENT VISIT, EST OFFICE/OUTPATIENT VISIT, EST OFFICE/OUTPATIENT VISIT, EST OFFICE/OUTPATIENT VISIT, EST OFFICE/OUTPATIENT VISIT, EST OFFICE/OUTPATIENT VISIT, EST PREV VISIT, EST, AGE 40-64 OFFICE/OUTPATIENT VISIT, EST OFFICE/OUTPATIENT VISIT, EST OFFICE/OUTPATIENT VISIT, EST OFFICE/OUTPATIENT VISIT, EST OFFICE/OUTPATIENT VISIT, EST -2014 PREV VISIT, EST, AGE 40-64 OFFICE/OUTPATIENT VISIT, EST OFFICE/OUTPATIENT VISIT, EST OFFICE/OUTPATIENT VISIT, EST OFFICE/OUTPATIENT VISIT, EST OFFICE/OUTPATIENT VISIT, EST OFFICE/OUTPATIENT VISIT, EST OFFICE/OUTPATIENT VISIT, EST OFFICE/OUTPATIENT VISIT, EST OFFICE/OUTPATIENT VISIT, EST OFFICE/OUTPATIENT VISIT, EST OFFICE/OUTPATIENT VISIT, EST PREV VISIT, EST, AGE 40-64 OFFICE/OUTPATIENT VISIT, EST OFFICE/OUTPATIENT VISIT, EST OFFICE/OUTPATIENT VISIT, EST OFFICE/OUTPATIENT VISIT, EST OFFICE/OUTPATIENT VISIT, EST OFFICE/OUTPATIENT VISIT, EST OFFICE/OUTPATIENT VISIT, EST OFFICE/OUTPATIENT VISIT, EST OFFICE/OUTPATIENT VISIT, EST OFFICE/OUTPATIENT VISIT, EST OFFICE/OUTPATIENT VISIT, EST PREV VISIT, EST, AGE 40-64 OFFICE/OUTPATIENT VISIT, EST OFFICE/OUTPATIENT VISIT, EST Advance Directives Directive Yes / No Effective Date File Name No Information Encounters Encounter Description Practice Location Reason(s) For Visit Diagnoses Date Provider Providers Copied on Encounter [facility], [address], [place], [place], [address], tel:[phone] [facility] No Information 8201 9 Reginaldo Peres. [address], [place], [place], [address] , [place]. tel:[phone] [facility], [address], [place], [place], [address], [place] tel:[phone] [facility] No Information 8 Reginaldo Peres. [address], [place], [place], [address] , [place]. tel:[phone] OFFICE/OUTPA TIENT VISIT, EST [facility], [address], [place], [place], [address], [place] tel:[phone] [facility] HTN (chief complaint)chron ic pain1 (chief complaint)anxie ty1 (chief complaint)COPD1 (chief complaint) Chronic pain syndromeEssent ial (primary) hypertensionEm physemaGeneral ized anxiety disorder 8 Reginaldo Peres. [address], [place], [place], [address] , [place]. tel:[phone] Referring Provider: Ja Hair, [address], [place], [place], [address]. tel:[phone] PREV VISIT, EST, AGE 40-64 [facility], [address], [place], [place], [address], [place] tel:[phone] [facility] back pain1 (chief complaint)HTN (chief complaint)sick1 (chief complaint)anxie ty1 (chief complaint) Essential (primary) hypertensionAc paiute-shoshone bronchitisEnco unter for general adult medical exam w abnormal findingsGERD w/o esophagitisEnc ntr for general adult medical exam w/o abnormal findings 8 Reginaldo Peres. [address], [place], [place], [address] , [place]. tel:[phone] [facility], [address], [place], [place], [address], [place] tel:[phone] [facility] No Information 8 Reginaldo Albrecht [address], [place], [place], [address] , [place]. tel:[phone] OFFICE/OUTPA TIENT VISIT, [facility], [address], [place], [place], [address], [place] tel:[phone] [facility] chronic pain (chief complaint)anxie ty1 (chief complaint)COPd1 (chief complaint) Generalized anxiety disorderChroni c pain syndromeEmphys bela 8 Reginaldo Albrecht [address], [place], [place], [address] , [place]. tel:[phone] OFFICE/OUTPA TIENT VISIT, [facility], [address], [place], [place], [address], [place] tel:[phone] [facility] COPD1 (chief complaint)anxie ty1 (chief complaint)duode nal ulcer1 (chief complaint)insom nia1 (chief complaint) InsomniaCOPDGe neralized anxiety disorderChroni c duodenal ulcer without perforation 7 Reginaldo Albrecht [address], [place], [place], [address] , [place]. tel:[phone] Referring Provider: Ja Hair, [address], [place], [place], [address]. tel:[phone] OFFICE/OUTPA TIENT VISIT, [facility], [address], [place], [address], [place] tel:[phone] [facility] COPD1 (chief complaint)anxie ty1 (chief complaint)duode nal ulcer1 (chief complaint)HTN (chief complaint) Chronic obstructive pulmonary disease, unspecifiedGen eralized anxiety disorderEssent ial (primary) hypertensionCh ronic duodenal ulcer without hemorrhage or perforation 7 Reginaldo Peres. [address], [place], [place], [address] , [place]. tel:[phone] Referring Provider: [address], [place], [place], [address]. tel:[phone] OFFICE/OUTPA TIENT VISIT, EST [facility], [address], [place], [place], [address], [place] tel:[phone] [facility] ischemia colitis1 (chief complaint)COPD1 (chief complaint)anxie ty1 (chief complaint)Insom nia1 (chief complaint)osteo penia1 (chief complaint) Ischemic colitisCOPDIns omniaGeneraliz ed anxiety disorder 7 Reginaldo Peres. [address], [place], [place], [address] , [place]. tel:[phone] Referring Provider: Joe [address], [place], [place], [address]. tel:[phone] PREV VISIT, EST, AGE 40-64 [facility], [address], [place], [place], [address], [place] tel:[phone] [facility] PHysical (chief complaint) Encounter for general adult medical exam w abnormal findingsGERD w/o esophagitisCOP DInsomnia 7 Reginaldo Peres. [address], [place], [place], [address] , [place]. tel:[phone] Referring Provider: Joe [address], [place], [place], [address]. tel:[phone] OFFICE/OUTPA TIENT VISIT, EST [facility], [address], [place], [place], [address], [place] tel:[phone] [facility] COPD1 (chief complaint)GERD1 (chief complaint)anxie ty1 (chief complaint) COPDGERD w/o esophagitisGen eralized Anxiety DisorderDisord er of bone density and structure, unspecified 6 Reginaldo Peres. [address], [place], [place], [address] , [place]. [phone] Referring Provider: Joe [address], [place], [place], [address]. tel:[phone] OFFICE/OUTPA TIENT VISIT, [facility], [address], [place], [address], [place] tel:[phone] [facility] anxiety1 (chief complaint)COPD1 (chief complaint)GERD1 (chief complaint)HTN (chief complaint) Generalized anxiety disorderCOPDEs sential (primary) hypertensionGE RD w/o esophagitis 6 Reginaldo Albrecht [address], [place], [place], [address] , [place]. [phone] Referring Provider: Joe [address], [place], [place], [address]. tel:[phone] OFFICE/OUTPA TIENT VISIT, [facility], [address], [place], [place], [address], [place] tel:[phone] [facility] bicep pain1 (chief complaint)nevus (chief complaint) Muscle disorderInjury of fascia of other part of biceps of right arm, sequelaNevus, non-neoplastic 6 Reginaldo Albrecht [address], [place], [place], [address] , [place]. tel:[phone] Referring Provider: Joe [address], [place], [place], [address]. tel:[phone] OFFICE/OUTPA TIENT VISIT, [facility], [address], [place], [place], [address], [place] tel:[phone] [facility] lung nodule1 (chief complaint)HLP (chief complaint)plate let (chief complaint)anxie ty1 (chief complaint)GERD1 (chief complaint) Generalized anxiety disorderSolita ry lung noduleHyperlip idemiaThromboc ytopenia 6 Reginaldo Peres. [address], [place], [address] , [place]. tel:[phone] Referring Provider: Joe [address], [place], [place], [address]. tel:[phone] OFFICE/OUTPA TIENT VISIT, EST [facility], [address], [place], [place], [address], [place] tel:[phone] [facility] chest mass (chief complaint)duode nal ulcer (chief complaint)tobac co (chief complaint) Solitary lung noduleTobacco useAcute duodenal ulcer without perforation 6 Reginaldo Albrecht [address], [place], [place], [address] , [place]. tel:[phone] Referring Provider: Joe [address], [place], [place], [address]. tel:[phone] PREV VISIT, EST, AGE 40-64 [facility], [address], [place], [place], [address], [place] tel:[phone] [facility] Physical (chief complaint) Encntr for general adult medical exam w/o abnormal findings 6 Reginaldo Albrecht [address], [place], [place], [address] , [place]. tel:[phone] Referring Provider: [address], [place], [place], [address]. tel:[phone] OFFICE/OUTPA TIENT VISIT, EST [facility], [address], [place], [address], [place] tel:[phone] [facility] duodenal ulcer1 (chief complaint)anxie ty1 (chief complaint)HTN1 (chief complaint)COPD (chief complaint) Essential (primary) hypertensionAc paiute-shoshone duodenal ulcer without hemorrhage or perforationOth er emphysemaGener alized anxiety disorder 5 Reginaldo Peres. [address], [place], [place], [address] , [place]. tel:[phone] Referring Provider: Joe [address], [place], [place], [address]. tel:[phone] OFFICE/OUTPA TIENT VISIT, [facility], [address], [place], [place], [address], [place] tel:[phone] [facility] GERD (chief complaint)COPD (chief complaint)liver CT (chief complaint)skin (chief complaint) Acute hepatitis C without mention of hepatic comaLiver diseaseCOPDAcu te bronchitis 5 Reginaldo Peres. [address], [place], [place], [address] , [place]. tel:[phone] Referring Provider: Joe [address], [place], [place], [address]. tel:[phone] OFFICE/OUTPA TIENT VISIT, [facility], [address], [place], [place], [address], [place] tel:[phone] [facility] osteopenia (chief complaint)Anxie ty (chief complaint)HTN (chief complaint)COPD (chief complaint) Generalized anxiety disorderOther disorders of bone and cartilageChron ic airway obstruction, not elsewhere classifiedUnsp ecified essential hypertension 5 Reginaldo Peres. [address], [place], [place], [address] , [place]. tel:[phone] Referring Provider: [address], [place], [place], [address]. tel:[phone] OFFICE/OUTPA TIENT VISIT, [facility], [address], [place], [place], [address], [place] tel:[phone] [facility] anxiety (chief complaint)GERD (chief complaint)COPD (chief complaint) Acute hepatitis C without mention of hepatic comaCOPDGERDGe neralized anxiety disorder 5 Reginaldo Albrecht [address], [place], [place], [address] , [place]. tel:[phone] Referring Provider: [address], [place], [place], [address]. tel:[phone] OFFICE/OUTPA TIENT VISIT, EST [facility], [address], [place], [place], [address], [place] tel:[phone] [facility] thrombocytopeni a (chief complaint)LUng nodule (chief complaint)COPD (chief complaint)anxie ty (chief complaint) Thrombocytopen iaSOLITARY PULMONRY NODULECOPDGene ralized anxiety disorder 5 Reginaldo Peres. [address], [place], [place], [address] , [place]. tel:[phone] Referring Provider: Joe [address], [place], [place], [address]. tel:[phone] PREV VISIT, EST, AGE 40-64 [facility], [address], [place], [place], [address], [place] tel:[phone] [facility] Physical (chief complaint) Routine Medical ExamRoutine Medical Exam 5 Reginaldo Peres. [address], [place], [place], [address] , [place]. tel:[phone] Referring Provider: Joe H[address], [place], [place], [address]. tel:[phone] OFFICE/OUTPA TIENT VISIT, EST [facility], [address], [place], [place], [address], [place] tel:[phone] [facility] chronic pain (chief complaint)anxie ty (chief complaint)chest nodule (chief complaint)nause a (chief complaint) Generalized anxiety disorderSwelli ng, mass, or lump in chestGERDCHRON IC PAIN NEC 4 Reginaldo Peres. [address], [place], [place], [address] , [place]. tel:[phone] Referring Provider: Joe H[address], [place], [place], [address]. tel:[phone] OFFICE/OUTPA TIENT VISIT, [facility], [address], [place], [place], [address], [place] tel:[phone] [facility] chornic pain (chief complaint)numbn ess (chief complaint)anxie ty (chief complaint) CHRONIC PAIN NECGeneralized anxiety disorderDistur bance of skin sensation 4 Reginaldo Peres. [address], [place], [place], [address] , [place]. tel:[phone] Referring Provider: Ja Hair, [address] [facility] [address], [place], [place], [address]. tel:[phone] OFFICE/OUTPA TIENT VISIT, [facility], [address], [place], [place], [address], [place] tel:[phone] [facility] chornic pain (chief complaint)osteo penia (chief complaint)anxie ty (chief complaint) CHRONIC PAIN NECDisorder of bone and cartilage, unspecifiedGen eralized anxiety disorder 4 Reginaldo Peres. [address], [place], [place], [address] , [place]. tel:[phone] Referring Provider: Ja Hair, Joe Minaya [facility] A, [place], [place], [address]. tel:[phone] OFFICE/OUTPA TIENT VISIT, [facility], [address], [place], [place], [address], [place] tel:[phone] [facility] chronic pain (chief complaint)anxie ty (chief complaint)Hep C (chief complaint)osteo penia (chief complaint) Generalized anxiety disorderAcute hepatitis C without mention of hepatic comaFamily Hx of Cardiovascular DiseaseDisorde r of bone and cartilage, unspecified 4 Reginaldo Peres. [address], [place], [place], [address] , [place]. tel:[phone] Referring Provider: Ja Hair, [address], [place], [place], [address]. tel:[phone] OFFICE/OUTPA TIENT VISIT, [facility], [address], [place], [place], [address], [place] tel:[phone] [facility] chornic pain (chief complaint)anxie ty (chief complaint)Hep c (chief complaint)HTN (chief complaint) Dietary surveillance and counselingHype rtension, UnspecifiedAcu te hepatitis C without mention of hepatic comaCHRONIC PAIN NECGeneralized anxiety disorder 4 Reginaldo Peres. [address], [place], [place], [address] , [place]. [phone] Referring Provider: Joe H[address], [place], [place], [address]. tel:[phone] OFFICE/OUTPA TIENT VISIT, [facility], [address], [place], [place], [address], [place] tel:[phone] [facility] chronic pain (chief complaint)anxie ty (chief complaint) Dietary surveillance and counselingCHRO BEHZAD PAIN NECGeneralized anxiety disorder 4 Reginaldo Peres. [address], [place], [place], [address] , [place]. [phone] Referring Provider: Joe [address], [place], [address]. tel:[phone] OFFICE/OUTPA TIENT VISIT, [facility], [address], [place], [place], [address], [place] tel:[phone] [facility] chronic pain (chief complaint)anxie ty (chief complaint)liver cirrhosis (chief complaint)COPD (chief complaint) CHRONIC PAIN NECGeneralized anxiety disorderAcute hepatitis C without mention of hepatic comaCOPD 4 Reginaldo Peres. [address], [place], [place], [address] , [place]. [phone] Referring Provider: Joe [address], [place], [place], [address]. tel:[phone] OFFICE/OUTPA TIENT VISIT, EST [facility], [address], [place], [place], [address], [place] tel:[phone] [facility] chronic pain (chief complaint)anxie ty (chief complaint)liver cirrhosis (chief complaint)pulmo nary nodule (chief complaint) CHRONIC PAIN NECGeneralized anxiety disorderAcute hepatitis C without mention of hepatic comaSwelling, mass, or lump in chest December-0 2-201 4 Reginaldo Peres. [address], [place], [place], [address] , [place]. tel:[phone] Referring Provider: Ja Hair [address], [place], [place], [address]. tel:[phone] [facility], [address], [place], [address], [place] tel:[phone] [facility] Swelling, mass, or lump in chest Nov- 4-201 4 Reginaldo Peres. [address], [place], [place], [address] , [place]. tel:[phone] Referring Provider: Ja Hair [address], [place], [place], [address]. tel:[phone] OFFICE/OUTPA TIENT VISIT, [facility], [address], [place], [address], [place] tel:[phone] [facility] back pain (chief complaint)anxie ty (chief complaint) Dietary surveillance and counselingGene ralized anxiety disorderCHRONI C PAIN NEC Nov-0 3-201 4 Reginaldo Peres. [address], [place], [place], [address] , [place]. tel:[phone] Referring Provider: Joe H[address], [place], [place], [address]. tel:[phone] OFFICE/OUTPA TIENT VISIT, [facility], [address], [place], [place], [address], [place] tel:[phone] [facility] chronic pain (chief complaint)Anxie ty (chief complaint) Dietary surveillance and counselingCHRO BEHZAD PAIN NECGeneralized anxiety disorderAcute hepatitis C without mention of hepatic coma 4 Reginaldo Peres. [address], [place], [place], [address] , [place]. tel:[phone] Referring Provider: Ja Hair, [address], [place], [address]. tel:[phone] OFFICE/OUTPA TIENT VISIT, EST [facility], [address], [place], [place], [address], [place] tel:[phone] [facility] chronic pain (chief complaint)anxie ty (chief complaint)Hep c (chief complaint) Dietary surveillance and counselingGene ralized anxiety disorderCHRONI C PAIN NECAcute hepatitis C without mention of hepatic coma 4 Reginaldo Peres. [address], [place], [place], [address] , [place]. tel:[phone] Referring Provider: Ja Hair, [address], [place], [place], [address]. tel:[phone] PREV VISIT, EST, AGE 40-64 [facility], [address], [place], [place], [address], [place] tel:[phone] [facility] PHysical (chief complaint) Routine Medical ExamRoutine Medical Exam 4 Reginaldo Peres. [address], [place], [place], [address] , [place]. tel:[phone] Referring Provider: Ja Hair, [address], [place], [place], [address]. tel:[phone] OFFICE/OUTPA TIENT VISIT, EST [facility], [address], [place], [address], [place] tel:[phone] [facility] chronic pain (chief complaint)Anxie ty (chief complaint)Hep C (chief complaint)COPD (chief complaint) Dietary surveillance and counselingCHRO BEHZAD PAIN NECGeneralized anxiety disorderAcute hepatitis C without mention of hepatic comaCirrhosis of liver without mention of alcohol 3 Reginaldo Peres. [address], [place], [place], [address] , [place]. tel:[phone] Referring Provider: Ja Hair, [address], [place], [place], [address]. tel:[phone] OFFICE/OUTPA TIENT VISIT, [facility], [address], [place], [address], [place] tel:[phone] [facility] chronic pain (chief complaint)anxie ty (chief complaint)COPD (chief complaint) Dietary surveillance and counselingCOPD Generalized anxiety disorderCHRONI C PAIN NECCongenital anomaly of lung, unspecified 3 Reginaldo Peres. [address], [place], [address] , [place]. tel:[phone] Referring Provider: [facility] [place], [address]. tel:[phone] OFFICE/OUTPA TIENT VISIT, [facility], [address], [place], [address], [place] tel:[phone] [facility] cholecystitis (chief complaint)chron ic pain (chief complaint)anxie ty (chief complaint) Dietary surveillance and counselingHype rtension, UnspecifiedCHR ONIC PAIN NECGeneralized anxiety disorderAcute cholecystitis 3 Reginaldo Albre[address], [place], [place], [address] , [place]. tel:[phone] Referring Provider: Joe [address], [place], [place], [address]. tel:[phone] OFFICE/OUTPA TIENT VISIT, [facility], [address], [place], [address], [place] tel:[phone] [facility] chronic pain (chief complaint)anxie ty (chief complaint)Edema (chief complaint) Dietary surveillance and counselingCHRO BEHZAD PAIN NECHypertensio n, UnspecifiedGen eralized anxiety disorder 3 Reginaldo Peres. [address], [place], [place], [address] , [place]. tel:[phone] Referring Provider: Joe [address], [place], [place], [address]. tel:[phone] OFFICE/OUTPA TIENT VISIT, [facility], [address], [place], [place], [address], [place] tel:[phone] [facility] chrnoic pain (chief complaint)HTN (chief complaint)Edema (chief complaint)anxie ty (chief complaint) Dietary surveillance and counselingHype rtension, UnspecifiedGen eralized anxiety disorderCHRONI C PAIN NECAcute hepatitis C without mention of hepatic coma 3 Reginaldo Peres. [address], [place], [place], [address] , [place]. [phone] Referring Provider: Joe H[address], [place], [place], [address]. tel:[phone] [facility], [address], [place], [place], [address], [place] tel:[phone] [facility] Unspecified abnormal mammogram 3 Reginaldo Peres. [address], [place], [place], [address] , [place]. [phone] Referring Provider: Joe [address], [place], [address]. tel:[phone] OFFICE/OUTPA TIENT VISIT, [facility], [address], [place], [place], [address], [place] tel:[phone] [facility] HTN (chief complaint)leg edema (chief complaint)anxie ty (chief complaint) Dietary surveillance and counselingCHRO BEHZAD PAIN NECGeneralized anxiety disorderEdema 3 Reginaldo Peres. [address], [address], [place], [place], [address] , [place]. [phone] Referring Provider: Ja Hair [address], [place], [place], [address]. tel:[phone] OFFICE/OUTPA TIENT VISIT, [facility], [address], [place], [place], [address], [place] [phone] [facility] anxiety (chief complaint)HTN (chief complaint)COPD (chief complaint) Dietary surveillance and counselingCHRO BEHZAD PAIN NECHypertensio n, UnspecifiedAcu te hepatitis C without mention of hepatic comaCOPD 3 Reginaldo Peres. [address], [address], [place], [place], [address] , [place]. tel:[phone] Referring Provider: Ja Hair, [address], [place], [place], [address]. tel:[phone] OFFICE/OUTPA TIENT VISIT, [facility], [address], [place], [place], [address], [place] [phone] [facility] anxiety (chief complaint)fatig ue (chief complaint)chron ic pain (chief complaint) Dietary surveillance and counselingFati martina / MalaiseGeneral ized anxiety disorderHypert ension, Unspecified 3 Reginaldo Peres. [address], [place], [place], [address] , [place]. tel:[phone] Referring Provider: Joe H[address], [place], [address]. tel:[phone] OFFICE/OUTPA TIENT VISIT, [facility], [address], [place], [place], [address], [place] tel:[phone] [facility] anxiety (chief complaint)COPD (chief complaint) Dietary surveillance and counselingCOPD Generalized anxiety disorderHypert ension, Unspecified 3 Reginaldo Peres. [address], [place], [place], [address] , [place]. tel:[phone] Referring Provider: Ja Hair, [address], [place], [place], [address]. tel:[phone] OFFICE/OUTPA TIENT VISIT, EST [facility], [address], [place], [place], [address], [place] tel:[phone] [facility] Medicine anxiety (chief complaint)HTN (chief complaint)sick (chief complaint) Dietary surveillance and counselingHype rtension, UnspecifiedGen eralized anxiety disorderBronch itis, Acute Mar- 3 Reginaldo Peres. [address], [place], [place], [address] , [place]. tel:[phone] Referring Provider: Ja Hair, [address], [place], [place], [address]. tel:[phone] OFFICE/OUTPA TIENT VISIT, [facility], [address], [place], [place], [address], [place] tel:[phone] [facility] Chronic pain (chief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
[2025-04-22] VITALS (22 sets, daily range): BP systolic 127–184; BP diastolic 74–108; PULSE 84–95; RESP 12–29; TEMP 37.1; O2SAT 91–97
--- NOTE | ~2025-04-22 | XR_ITS ---
EXAMINATION: XR chest 1V DATE: 04/23/2025 00:24 INDICATION: Unknown cause of weakness TECHNIQUE: frontal view of the chest was obtained. COMPARISON: Chest radiograph dated 10/21/2021 FINDINGS: Chronic mild biapical pleural-parenchymal scarring. Linear discoid atelectasis/scarring at the left lower lung zone. No new airspace opacities, pulmonary edema, pleural effusion or pneumothorax. Heart size is normal. Instrumented lower cervical anterior spinal fusion. IMPRESSION: 1. No acute cardiopulmonary disease. Reviewed, dictated and finalized at location A.
--- NOTE | ~2025-04-22 | CT_ITS ---
EXAMINATION: CT BRAIN W/O DATE: 04/23/2025 00:21 INDICATION: Concern for altered mental status TECHNIQUE: Computed tomography (CT) of the head was performed without intravenous contrast. The dose-length product was 908.00 mGy-cm. COMPARISON: No prior studies for comparison. FINDINGS: Normal brain parenchymal volume for age. Normal mcmullen-white differentiation. No acute intracranial hemorrhage, infarction, mass or mass effect. There are scattered moderate periventricular and subcortical white matter changes, most likely related to small vessel ischemic disease (microangiopathy). No ventriculomegaly or midline shift. Midline sagittal images demonstrate a normal corpus callosum, craniovertebral junction and sella turcica. Basilar cisterns are patent. Paranasal sinuses and mastoids are pneumatized. No depressed skull fractures. IMPRESSION: 1. No acute intracranial abnormality. Reviewed, dictated and finalized at location O.
--- NOTE | ~2025-04-22 | XR_ITS ---
XR knee LT 3V 04/22/2025 20:09 Indication: Left knee pain Procedure: 4 views left knee Comparison: 06/26/2022 Findings: Moderate medial compartmental osteoarthritis. No fracture, subluxation or dislocation. No significant joint effusion. No foreign bodies. Impression: 1: Moderate medial compartmental osteoarthritis. Reviewed, dictated and finalized at location O. Impression: 1: Moderate medial compartmental osteoarthritis.
--- NOTE | ~2025-04-22 | XR_ITS ---
XR knee RT 3V 04/22/2025 20:09 Indication: Right knee pain status post fall Procedure: 3 views right knee Comparison: No prior studies for comparison. Findings: No fracture, subluxation or dislocation. There is chondrocalcinosis. No significant joint effusion. Impression mild medial compartmental degenerative change. Impression: 1: No acute bone or joint abnormality. Reviewed, dictated and finalized at location O. Impression mild medial compartmental degenerative change. Impression: 1: No acute bone or joint abnormality.
--- NOTE | ~2025-04-22 | XR_ITS ---
XR hip RT 2V w AP pelvis 04/22/2025 20:09 INDICATION: Hip pain PROCEDURE: AP pelvis and 3 views right hip COMPARISON: No prior studies for comparison. FINDINGS: Fracture, dislocation or subluxation is not identified. Pelvic rings intact. The soft tissues appear within normal limits. No foreign bodies are identified. IMPRESSION: 1: NO ACUTE BONE OR JOINT ABNORMALITY IDENTIFIED. Reviewed, dictated and finalized at location O.
--- OUTSIDE RECORDS SUMMARY | 2025-04-22 19:29 | XMS_ITS | Clinical Summary ---
Author Organization [facility] Address [address] [place] [id number] Care Team Providers Care Ramp Lead Name Role Phone Charles Mcfarland MD Primary Care Provider [phone] Social History Tobacco Use Types Packs/Day Years Used Date Smoking Tobacco: Never Assessed Comments Unknown Sex and Gender Information Value Date Recorded Sex Assigned at Not on file Legal Sex Female 7:45 PM CDT Gender Identity Not on file Sexual Orientation Not on file Plan of Treatment Health Maintenance Due Date Last Done Comments Colorectal Cancer Screening Colonoscopy (10 Years) 1957 Hepatitis C 1975 DTaP, Tdap and Td Vaccines ( 1 - Tdap) 02/24/1976 Mammogram Screening 1997 Pneumococcal Vaccine: 50+ Ye ars (1 of 1 - PCV) 2007 Zoster Vaccines (1 of 2) 2007 Dexa Scan (General) 2022 COVID-19 Vaccine ( - 2023-2 5 season) 2024 RSV Immunization or 60+ Years (1 - 1-dose 75+ series) 02/24/2032 Meningococcal B Vaccine Aged Out No l onger eligible based on patient's age to complete this topic Meningococcal Vaccine Aged Out No melany dion eligible based on patient's age to complete this topic RSV Immunizations Under 20 Months Aged Out No longer eligible based on patient's age to complete this topic Insurance [id number] HENAO Care Teams Ramp Lead Relationship Specialty Start Date End Date Charles Mcfarland MD [id number] [place] [address] PCP - General FAMILY PRACTICE 04/30/19
--- OUTSIDE RECORDS SUMMARY | 2025-04-22 19:30 | XMS_ITS | Patient Health Record ---
Author Organization [facility] Address [address] [place] [address] Care Team Providers Care Cooker Pie Filling Name Role Phone Irina Carlos Primary Care Provider [phone] Allergies Allergen (clinical drug ingredient) Drug/Non Drug Allergy documented on EMR Reaction Allergy Type Onset Date Status cephalexin Cephalexin Unknown Drug Allergy Activ e Penicillin Unknown Drug Allergy Active Results Component Value Reference Range Notes 14 Panel Urine Drug Screen Reviewed date:03/20/2025 11:30:03 AM Interpretation: Performing Lab: Notes/Report: THC neg NADER neg MOP (OPI) neg AMP neg MET neg BAR neg BZO POS MDMA neg MTD neg OXY neg PCP neg BUP POS TCA neg FTY neg Reason For Referral No Information Medications Medication SIG (Take, Route, Frequency, Duration) Notes Start Date End Date Status Atorvastatin Calcium 20 mg TAKE 1 TABLET BY MOUTH DAILY; Duration: 28 Active Incruse Ellipta 62.5 MCG/ACT INHALE 1 PUFF DAILY; Duration: 30 Active Clopidogrel Bisulfate 75 mg TAKE 1 TABLET BY MOUTH DAILY; Duration: 28 Active Lisinopril-hydroCHLORO thiazide 10-12.5 mg TAKE 1 TABLET BY MOUTH DAILY; Duration: 28 Active Ondansetron 4 MG 1 tablet on the tongue and allow to dissolve Orally Once a day; Duration: 30 days As needed NAUSEA 05/11/2024 Active Naloxone HCl 8 MG/0.1ML 8 mg as needed for opioid overdose Nasally as needed Active Misc. Devices - SHOWER CHAIR as directed for ADLs. Rollator and shower chair will resolve ADLs and mobility deficits. externally daily 07/29/2021 Active Ipratropium-Albuterol 0.5-2.5 (3) MG/3ML USE 1 VIAL FOUR TIMES A DAY NEEDED; Duration: 8 import came up as ophthalmic solution; want neb solution Active Misc. Devices - MOTORIZED MOBILITY CHAIR EXTERNALLY DAILY 05/29/2022 Active Rollator Ultra-Light - as directed for d x J44.9 and M54.50. Pt. can safely use rollator and shower chair to properly assist pt. with ADL's. Rollator and shower chair will resolve ADL's/mobility deficit. externally daily 07/29/2021 Active Nebulizer/Tubing/Mouth piece - as needed for dyspnea externally every 4 hours 10/29/2021 Active Albuterol Sulfate (2.5 MG/3ML) 0.083% 3 mL Inhalation every 6 hrs As needed dyspnea Active Promethazine HCl 12.5 MG 1 tablet as needed Orally every 6 hrs; Duration: 10 days As needed NAUSEA 12/10/2023 Active Acetaminophen 500 MG two tablets Orally every 6 hrs Active oxyBUTYnin Chloride ER 5 MG 1 tablet Orally Once a day; Duration: 30 days AT NIGHT 04/18/2025 Active Lidocaine 5 % 1 patch remove after 12 hours Externally Once a day As needed low back pain 05/04/2024 Active Fluticasone Propionate 50 MCG/ACT 2 spray in each nostril Nasally Once a day 10/09/2021 Active diazePAM 2 MG 1 tablet Orally 4 times a day; Duration: 30 days 04/18/2025 Active MiraLax 17 GM 1 packet mixed with 8 ounces of fluid as needed for constipation Orally Once a day Active Senna 8.6 MG 2 tablets at bedtime as needed Orally Once a day; Duration: 30 days As needed CONSTIPATION 05/11/2024 Active Omeprazole 20 mg TAKE 1 CAPSULE BY MOUTH EVERY MORNING 30 MINUTES BEFORE MORNING MEAL; Duration: 28 days Active Senna-Time 8.6 mg two tablets at night Active GoodSense Nicotine 4 MG 1 piece chew for 30 minutes as needed Mouth/Throat EVERY 1-2 HOURS SMOKING CESSATION UP TO 16 PER DAY 12/10/2023 Active Knee Brace/Flex Stays Medium - wear on left knee externally daily Active Support Compression Sock Mens - 45 mmHg graduated pressure over the calf to wear while out of bed externally daily 09/04/2022 Active Buprenorphine HCl-Naloxone HCl 4-1 MG 1 film under the tongue and allow to dissolve Sublingual 3 times a day; Duration: 30 days has appt 02/1504/18/2025 Active Levothyroxine Sodium 88 MCG 1 tablet in the morning on an empty stomach Orally Once a day; Duration: 30 days Active buPROPion HCl ER (XL) 300 mg TAKE 1 TABLET BY MOUTH EVERY MORNING; Duration: 28 Active Ventolin HFA 108 (90 Base) MCG/ACT 2 puffs as needed for shortness of breath every 4 hrs; Duration: 16 days Active OLANZapine 20 MG 1 tablet Orally Once a day; Duration: 30 days AT BEDTIME Active Immunizations Vaccine Route Administration Date Status Comme nts FLU VAC NO PRSV 4VAL 6 mo+ IM Intramuscular 07/13/2022 Administered Pt. tolerated well. No questions or concerns at this time. Social History Tobacco Use: Social History Observation Description Date Details (start date - stop date) Current Smoker NA - NA Sex Assigned At : Social History Observation Description Sex Assigned At Female Tobacco Control (Standard) Question Answer Notes Tobacco use: Current smoker Additional Findings: Tobacco user Moderate cigar ette smoker (10-19 cigs/day) Problems Problem Type SNOMED Code ICD Code Onset Dates Problem Status W/U Status Risk Notes Problem Thrombocytopenia (612971291) Thrombocytopenia , unspecified (D69.6) Active confirmed Problem Tobacco user (449004690) Nicotine dependence, unspecified, uncomplicated (F17.200) Active confirmed Problem Chronic pain (41762259) Other chronic pain (G89.29) Active confirmed Problem Chronic rhinitis (10536226) Chronic rhinitis (J31.0) Active confirmed Problem Chronic respiratory failure (60614828) Chronic respiratory failure with hypoxia (J96.11) Active confirmed Problem Age-related osteoporosis (768508974) Age-related osteoporosis without current pathological fracture (M81.0) Active confirmed Problem Hyperlipidemia (99370057) Hyperlipidemia (E78.5) 2021 Active confirmed Problem Depression (138460718) Depression (F32.9) 2023 Active confirmed Problem Bipolar affective disorder, currently depressed, mild (184752571) Bipolar 1 disorder, depressed, mild (F31.31) 2021 Active confirmed Problem Generalized anxiety disorder (37282576) DANIELLE (generalized anxiety disorder) (F41.1) 2021 Active confirmed Problem Acute exacerbation of chronic obstructive airways disease (051265363) COPD exacerbation (J44.1) Active confirmed Problem Venous insufficiency of leg (disorder) (890686573) Venous insufficiency (I87.2) Active confirmed Problem Constipation (92831603) Constipation (K59.00) Active confirmed Problem Benzodiazepine dependence (788634175) Benzodiazepine dependence (F13.20) Active confirmed Problem Chronic fatigue syndrome (93486602) Chronic fatigue (R53.82) Active confirmed Problem Bipolar affective disorder, currently depressed, moderate (129350028) Bipolar 1 disorder, depressed, moderate (F31.32) 2021 Active confirmed Problem Tobacco user (936088260) Nicotine addiction (F17.200) Active confirmed Problem Unsteady gait (14582588) Unsteady gait (R26.81) Active confirmed Problem Backache (692678600) Dorsalgia of multiple sites in spine (M54.9) Active confirmed Problem Mental disorder caused by drug (683829837) Sedative, 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) Active confirmed Problem Hypothyroidism (82342041) Hypothyroidism, unspecified type (E03.9) Active confirmed Problem COPD - Chronic obstructive pulmonary disease (68533463) Chronic obstructive pulmonary disease, unspecified COPD type (J44.9) 2020 Active confirmed Problem Osteoarthritis of left knee joint (385555416592890) Osteoarthritis of left knee, unspecified osteoarthritis type (M17.12) Active confirmed Problem Tobacco use (758444736) Tobacco use disorder (F17.200) Active confirmed Problem Essential hypertension (68544040) Hypertension, unspecified type (I10) 2020 Active confirmed Problem Benzodiazepine abuse in remission (F13.11) Active confirmed Problem Lumbago with sciatica (402017011) Sciatica associated with disorder of lumbar spine (M53.86) Active confirmed Problem Cerebrovascular disease (98918030) Cerebrovascular disease (I67.9) [address], NO STROKE, CAROTIDS OK Problem Overactive urinary bladder (disorder) (206064474) OAB (overactive bladder) (N32.81) Active confirmed Problem Abnormal gait (54254718) Imbalance (R26.89) 2021 Active confirmed High CEREBELLAR STROKE VS NEOPLASM VS OVERMEDICATION VS C-SPINE STENOSIS VS NEUROPATHY Problem Dyssomnia (10493826) Disordered sleep (G47.9) Active confirmed Problem Chronic idiopathic thrombocytopenia (D69.3) Active confirmed Problem Low back pain (400647397) Low back pain, unspecified (M54.50) Active confirmed Problem Mental disorder caused by drug (647581498) 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) 2020 Active confirmed Problem Chronic kidney disease stage 3A (disorder) (950663366) Stage 3a chronic kidney disease (CKD) (N18.31) Active confirmed Problem Unstageable pressure injury of left heel (disorder) (9588504505299153 5) Pressure sore on heel, left, unstageable (L89.620) 2021 Active confirmed Vital Signs Heart Rate 81 /min 04/18/2025 Respiratory Rate 16 /min 03/20/2025 Oximetry 99 % 04/18/2025 Blood pressure diastolic 70 mm Hg 03/20/2025 Height 62 in 03/20/2025 Blood pressure systolic 108 mm Hg 03/20/2025 Weight 157.2 lbs 03/20/2025 BMI 28.75 kg/m2 03/20/2025 Encounters Encounter Location Date Provider Diagnosis [address] [place] [address] 05/11/2024 Carlos Arevalo Dorsalgia of multipl e sites in spine M54.9 ; Opioid use with opioid-induced disorder F11.99 ; Benzodiazepine dependence F13.20 ; Chronic obstructive pulmonary disease, unspecified COPD type J44.9 ; Stage 3a chronic kidney disease (CKD) N18.31 ; Nausea R11.0 and Constipation K59.[address] [facility] [place] [address] 06/22/2024 Carlos Ernandezgia of multipl e sites in spine M54.9 ; Opioid use with opioid-induced disorder F11.99 ; Benzodiazepine dependence F13.20 and Nicotine dependence, unspecified, uncomplicated F17.200 [facility] [address] [place] [address] 07/28/2024 Carlos Arevalo Opioid use with opioid-induced disorder F11.99 ; Dorsalgia of multiple sites in spine M54.9 ; Benzodiazepine dependence F13.20 and Nicotine dependence, unspecified, uncomplicated F17.[address] [address] 09/04/2024 Carlos Arevalo Encounter for screen ing mammogram for breast cancer Z12.31 ; Nicotine dependence, unspecified, uncomplicated F17.200 ; Dorsalgia of multiple sites in spine M54.9 ; Opioid use with opioid-induced disorder F11.99 and Benzodiazepine dependence F13.[address] [address] 10/17/2024 Carlos Arevalo Low back pain, unspecified M54.50 ; Benzodiazepine dependence F13.20 ; Opioid use with opioid-induced disorder F11.99 ; Chronic obstructive pulmonary disease, unspecified COPD type J44.9 ; Other chronic pain G89.29 ; Screening for breast cancer Z12.39 and Screening for osteoporosis Z13.[address] [address] 11/14/2024 Carlos Arevalo Opioid use with opioid-induced disorder F11.99 ; Low back pain, unspecified M54.50 ; Bipolar 1 disorder, depressed, moderate F31.32 ; Benzodiazepine dependence F13.20 and Nicotine dependence, unspecified, uncomplicated F17.[address] [address] 01/09/2025 Carlos Arevalo Bipolar 1 disorder, depressed, moderate F31.32 ; Opioid use with opioid-induced disorder F11.99 ; Benzodiazepine dependence F13.20 ; Chronic obstructive pulmonary disease, unspecified COPD type J44.9 ; Constipation K59.00 ; Low back pain, unspecified M54.50 ; Nausea R11.0 and Depression F32.[address] [address] 02/22/2025 Carlos Arevalo Opioid use with opioid-induced disorder F11.99 and Benzodiazepine dependence F13.[address] [address] 03/20/2025 Carlos Arevalo Opioid use with opioid-induced disorder F11.99 ; Chronic obstructive pulmonary disease, unspecified COPD type J44.9 ; Bipolar 1 disorder, depressed, moderate F31.32 ; Benzodiazepine dependence F13.20 ; Chronic respiratory failure with hypoxia J96.11 ; Low back pain, unspecified M54.50 ; Depression F32.9 and Chronic rhinitis J31.[address] [place] [address] 04/18/2025 Carlos Arevalo Sciatica associated with disorder of lumbar spine M53.86 ; OAB (overactive bladder) N32.81 ; Opioid use with opioid-induced disorder F11.99 ; DANIELLE (generalized anxiety disorder) F41.1 ; Bipolar 1 disorder, depressed, moderate F31.32 ; Depression F32.9 and Chronic rhinitis J31.0 [facility] [address], [place] [address] 05/02/2024 Carlos Arevalo [address] [address] 07/17/2024 Carlos Arevalo [address] [place] [address] 08/04/2024 Carlos Arevalo COPD exacerbation J4 4.[address] [place] [address] 08/09/2024 Carlos Arevalo [facility] [address] [place] [address] 10/18/2024 Carlos Arevalo [address] [place] [address] 10/24/2024 Carlos Arevalo [address] [place] [address] 01/09/2025 Carlos Arevalo [address] [place] [address] 01/11/2025 Carlos Arevalo Low back pain, unspecified M54.[address] [place] [place] [address] 02/14/2025 Carlos Arevalo Opioid use with opioid-induced disorder F11.[address] [place] [address] 02/19/2025 Carlos Arevalo [facility] [address] [place] [address] 03/30/2025 Carlos Arevalo [address] [place] [address] 04/06/2025 Carlos Arevalo Chronic obstructive pulmonary disease, unspecified COPD type J44.9 Assessments Encounter Date Diagnosis (ICD Code) Assessment Notes Treatment Notes Treatment Clinical Notes Section Notes 04/06/2025 Chronic obstructive pulmonary disease, unspecified COPD type (ICD-10 - J44.9) 03/20/2025 Opioid use with opioid-induced disorder (ICD-10 - F11.99) 08/04/2024 COPD exacerbation (ICD-10 - J44.1) 05/11/2024 Dorsalgia of multiple sites in spine (ICD-10 - M54.9) 04/18/2025 Sciatica associated with disorder of lumbar spine (ICD-10 - M53.86) 04/18/2025 OAB (overactive bladder) (ICD-10 - N32.81) 02/22/2025 Benzodiazepine dependence (ICD-10 - F13.20) 02/22/2025 Opioid use with opioid-induced disorder (ICD-10 - F11.99) 05/11/2024 Opioid use with opioid-induced disorder (ICD-10 - F11.99) 06/22/2024 Dorsalgia of multiple sites in spine (ICD-10 - M54.9) 06/22/2024 Opioid use with opioid-induced disorder (ICD-10 - F11.99) 07/28/2024 Dorsalgia of multiple sites in spine (ICD-10 - M54.9) 07/28/2024 Opioid use with opioid-induced disorder (ICD-10 - F11.99) 11/14/2024 Low back pain, unspecified (ICD-10 - M54.50) 11/14/2024 Opioid use with opioid-induced disorder (ICD-10 - F11.99) 09/04/2024 Encounter for screening mammogram for breast cancer (ICD-10 - Z12.31) 10/17/2024 Benzodiazepine dependence (ICD-10 - F13.20) 10/17/2024 Low back pain, unspecified (ICD-10 - M54.50) 02/14/2025 Opioid use with opioid-induced disorder (ICD-10 - F11.99) 01/11/2025 Low back pain, unspecified (ICD-10 - M54.50) 03/20/2025 Chronic obstructive pulmonary disease, unspecified COPD type (ICD-10 - J44.9) 01/09/2025 Bipolar 1 disorder, depressed, moderate (ICD-10 - F31.32) 01/09/2025 Opioid use with opioid-induced disorder (ICD-10 - F11.99) [place] ISSUES 01/09/2025 Benzodiazepine dependence (ICD-10 - F13.20) 03/20/2025 Bipolar 1 disorder, depressed, moderate (ICD-10 - F31.32) 10/17/2024 Opioid use with opioid-induced disorder (ICD-10 - F11.99) 09/04/2024 Nicotine dependence, unspecified, uncomplicated (ICD-10 - F17.200) 11/14/2024 Bipolar 1 disorder, depressed, moderate (ICD-10 - F31.32) 07/28/2024 Benzodiazepine dependence (ICD-10 - F13.20) 06/22/2024 Benzodiazepine dependence (ICD-10 - F13.20) 05/11/2024 Benzodiazepine dependence (ICD-10 - F13.20) 04/18/2025 Opioid use with opioid-induced disorder (ICD-10 - F11.99) 04/18/2025 DANIELLE (generalized anxiety disorder) (ICD-10 - F41.1) 06/22/2024 Nicotine dependence, unspecified, uncomplicated (ICD-10 - F17.200) 05/11/2024 Chronic obstructive pulmonary disease, unspecified COPD type (ICD-10 - J44.9) 07/28/2024 Nicotine dependence, unspecified, uncomplicated (ICD-10 - F17.200) 09/04/2024 Dorsalgia of multiple sites in spine (ICD-10 - M54.9) 10/17/2024 Chronic obstructive pulmonary disease, unspecified COPD type (ICD-10 - J44.9) 11/14/2024 Benzodiazepine dependence (ICD-10 - F13.20) 03/20/2025 Benzodiazepine dependence (ICD-10 - F13.20) 01/09/2025 Chronic obstructive pulmonary disease, unspecified COPD type (ICD-10 - J44.9) 01/09/2025 Constipation (ICD-10 - K59.00) 03/20/2025 Chronic respiratory failure with hypoxia (ICD-10 - J96.11) OXYGEN 2 LPM BY NC WITH EXERTION OR SLEEPING 11/14/2024 Nicotine dependence, unspecified, uncomplicated (ICD-10 - F17.200) 09/04/2024 Opioid use with opioid-induced disorder (ICD-10 - F11.99) 10/17/2024 Other chronic pain (ICD-10 - G89.29) 05/11/2024 Stage 3a chronic kidney disease (CKD) (ICD-10 - N18.31) 04/18/2025 Bipolar 1 disorder, depressed, moderate (ICD-10 - F31.32) 04/18/2025 Depression (ICD-10 - F32.9) 05/11/2024 Nausea (ICD-10 - R11.0) 10/17/2024 Screening for breast cancer (ICD-10 - Z12.39) 09/04/2024 Benzodiazepine dependence (ICD-10 - F13.20) 03/20/2025 Low back pain, unspecified (ICD-10 - M54.50) 01/09/2025 Low back pain, unspecified (ICD-10 - M54.50) 01/09/2025 Nausea (ICD-10 - R11.0) 03/20/2025 Depression (ICD-10 - F32.9) 10/17/2024 Screening for osteoporosis (ICD-10 - Z13.820) 05/11/2024 Constipation (ICD-10 - K59.00) 04/18/2025 Chronic rhinitis (ICD-10 - J31.0) 03/20/2025 Chronic rhinitis (ICD-10 - J31.0) 01/09/2025 Depression (ICD-10 - F32.9) 08/04/2024 Other Learning About the Safe Use of Antibiotics material was discussed. Pt was educated on use of antibiotic medication including dosing, side effects, adverse effects and anticipated response. Pt was also educated on importance of completing full course of treatment as ordered. Patient voiced understanding of all. 10/18/2024 Other Custom Tailor met with Zuleika Hill to assist in working on building skills to help the consumer gain confidence in their independent living skills. The newswriter encouraged and engaged in critical thinking of how to use natural resources and coping skills to help manage symptoms in the moment. Custom Tailor also worked on modeling and practicing with the consumer healthy coping skills to reduce stress and anxiety including breathing exercises, calling family when stress, and meditation techniques. Plan Of Treatment Future Test Test Name Order Date Mammogram Breast - Bilateral Screening with ABUS, diagnostic mammogram/ultrasound, and/or biopsy as clinically indicated 09/11/2024 DEXA Hip and Spine 10/17/2024 Xray : Spines, lumbar complete 5 Six Minute Walk Test 04/06/2025 Insurance Providers Payer Name Payer Address Payer Phone Subscriber Number Group Number Insured Name Patient Relationship to Insured Coverage Start Date Coverage End Date [facility] [employer] Medicare Assure [address] [address] [place] [address] [id number] Aurora Hill Self - patient is the insured 4 MEDICAID [address] [place] [address] [id number] Aurora Hill Self - patient is the insured 5 [facility] Att Claims Department [address] [place] [address] [id number] Aurora Hill Self - patient is the insured 1 5 Medications Administered Medication Instructions Date of Administration Dosage Notes Sublocade 08/19/2021 300 mg RIGHT LOWER PE RIUMBILICAL Medical (General) History Medical History History ICD Code COPD Overactive bladder Hypothyroid Chronic fatigue Chronic pain Bipolar I disorder F31.9 Surgical History Surgery Date(Month/Year) Spine Hysterectomy Neck x's 2 Back Hospitalization History Reason Date(Month/Year) [place]
--- OUTSIDE RECORDS SUMMARY | 2025-04-22 19:30 | XMS_ITS | Clinical Summary ---
Author Organization [facility] Address [address] [place] [address] Phone Care Team Providers Care Inventory Checker Name Role Phone Unavailable Primary Care Provider Unavailabl e Allergies Active Allergy Reactions Criticality Noted Date Comments Amitriptyline Itching High 12/21/2017 Amoxicillin Unknown High 12/21/2017 Ciprofloxacin Anaphylaxis High 12/21/2017 Linezolid Rash High 12/21/2017 Morphine Hallucinations High 12/21/2017 Paroxetine Rash High 12/21/2017 Penicillins Unknown High 12/21/2017 Prochlorperazine Edisylate Itching High 8 Quinolones Unknown High 12/21/2017 Medications hydrOXYzine (VISTARIL) 50 MG Capsule TK 1 C PO QHS 0 8 Active ALPRAZolam (XANAX) 1 MG Tablet Take 1 mg by mouth 3 times daily as needed. Active HYDROcodone-christine taminophen (NORCO) 10-325 MG Tablet Take 1 Tab by mouth every 6 hours as needed for Pain. Active cyclobenzaprine (FLEXERIL) 10 MG Tablet TAKE 1 TAB BY MOUTH 2 TIMES DAILY. 60 Tab 8 Active spironolactone (ALDACTONE) 100 MG Tablet TK 1 T PO QD 1 8 Active ondansetron (ZOFRAN) 4 MG TabletIndicatio ns:Gastroesopha geal reflux disease, esophagitis presence not specified Take 1 Tab by mouth every 8 hours as needed for Nausea - 1st line. 15 Tab 8 Active raNITIdine (ZANTAC) 300 MG TabletIndicatio ns:Gastroesopha geal reflux disease, esophagitis presence not specified Take 1 Tab by mouth nightly. 90 Tab 2 8 Active albuterol (PROVENTIL, VENTOLIN) (2.5 MG/3ML) 0.083% Nebulizer Soln INHALE THE CONTENTS OF ONE VIAL VIA NEBULIZATION ROUTE EVERY 6 HOURS NEEDED FOR SHORTNESS OF BREATH 360 mL 5 8 Active amLODIPine (NORVASC) 5 MG Tablet Take 1 Tab by mouth daily. 90 Tab 1 8 Active budesonide-form oterol fumarate (SYMBICORT) 160-4.5 MCG/ACT AerosolIndicati ons:Chronic obstructive pulmonary disease, unspecified COPD type (HCC) take 2 Puffs by inhalation 2 times daily. 1 Inhaler 3 8 Active INCRUSE ELLIPTA 62.5 MCG/INH AEROSOL POWDER, BREATH ACTIVATEDIndica tions:Chronic obstructive pulmonary disease, unspecified COPD type (HCC) INHALE 1 PUFF BY MOUTH DAILY 30 Each 3 9 Active VENTOLIN HFA 108 (90 Base) MCG/ACT Aerosol SolutionIndicat ions:Chronic obstructive pulmonary disease, unspecified COPD type (HCC) INHALE 2 PUFFS BY MOUTH EVERY 4 HOURS NEEDED FOR WHEEZING 2 Inhaler 9 Active Active Problems No known active problems Immunizations Immunization Administration Dates Next Due Hepatitis A And Hepatitis B Vaccine 04/27/2013,0 03/20/2013 Influenza, Seasonal, Injectable, Undefined 05/13,06/20/2014 Family History Medical History Relation Name Comments Heart Attack Brother 1 x 2 Heart Surgery Brother 1 Diabetes Brother 2 Heart Attack Brother 2 Stroke Brother 2 Heart Disease Father Heart Surgery Father Renal Failure Father Heart Attack Mother Heart Surgery Mother Lung Cancer Mother Heart Attack Sister 1 Lung Cancer Sister 1 Breast Cancer Sister 2 Heart Attack Sister 2 Diabetes Sister 3 Heart Disease Sister 3 Kidney Disease Sister 3 No Known Problems Sister 4 Relation Name Status Comments Brother 1 Alive Brother 2 Father Mother Sister 1 Sister 2 Alive Sister 3 Alive Sister 4 Alive Social History Tobacco Use Types Packs/Day Years Used Date Smoking Tobacco: Every Day Cigarettes Smokeless Tobacco: Never Tobacco Cessation:Ready to Q uit: No; Counseling Given: Yes Comments:Would like to quit Alcohol Use Standard Drinks/Week Comments No 0 (1 standard drink = 0.6 oz pur e alcohol) Sexually Active Control Partners Comments Never Comments Unknown Sex and Gender Information Value Date Recorded Sex Assigned at Not on file Legal Sex Female 2:41 PM CDT Gender Identity Not on file Sexual Orientation Not on file Occupation Industry Job Start Date Job End Date Disabled Not on file Not on file Not on file Last Filed Vital Signs Vital Sign Reading Time Taken Comments Blood Pressure 106/62 02/04/2018 11:11 AM CDT Pulse 70 02/04/2018 11:11 AM CDT Temperature 36.1 C (97 F) 02/04/2018 11:11 AM CDT Respiratory Rate 18 02/04/2018 11:11 AM CDT Oxygen Saturation 98% 02/04/2018 11:11 AM CDT Inhaled Oxygen Concentration - - Weight 66 kg (145 lb 8 oz) 02/04/2018 11:11 AM C DT Height 154.9 cm (5' 1) 02/04/2018 11:11 AM CDT Body Mass Index 27.49 02/04/2018 11:11 AM CDT Plan of Treatment Health Maintenance Due Date Last Done Comments TdaP Immunization 1957 Cologuard 2002 Colonoscopy 2002 Colorectal Cancer Screening 2002 Immunochemical Fecal Occult Blood 2002 Pneumococcal Immunization (5 0+ years) (1 of 1 - PCV) 2007 Zoster Immunization (1 of 2) 2007 Hepatitis B Immunization (3 of 3 - Hep B Twinrix 3-dose series) 09/27/2013 04/27/2013, 03/20/2013 SARS-COV-2 Immunization (3 - season) 2024 05/29/2021, 03/23/2021 Influenza Immunization (#1) 04/30/202504/30, 06/20/2014 Respiratory Syncytial Virus (RSV) Immunization (Adult) (1 - 1-dose 75+ series) 02/24/2032 Human Papillomavirus (HPV) Immunization Aged Out No longer eligible b ased on patient's age to complete this topic Meningococcal Immunization (ACWY) Aged Out No longer eligible b ased on patient's age to complete this topic Rotavirus Immunization Aged Out No lo nger eligible based on patient's age to complete this topic Insurance [employer]ICAID [employer]
--- NOTE | 2025-04-22 19:52 | ED_ITS ---
HPI - Fall General Chief Complaint: Fall <Anni Painter APRN - Last Filed: 04/23/25 01:55> Stated Complaint: fall <Anni Painter APRN - Last Filed: 04/23/25 01:55> Time Seen by Provider: 04/22/25 18:25 <Anni Painter APRN - Last Filed: 04/23/25 01:55> History of Present Illness HPI Narrative: Patient is a 70-year-old female who presents to the ER after having 2 recent ground level falls. She reports her last fall was yesterday. After her 1st fall she started experiencing right knee pain and right hip pain. After yesterday's fall she endorses left knee pain. Patient is unsure why she fell but reports ?my legs felt like they just gave out on me. She believes she is on blood thinners but does not know why she takes min. patient also endorses a history of COPD, high blood pressure, an abnormal thyroid levels. Patient denies any calf pain, numbness or tingling in lower extremities, saddle anesthesia, head injury, or urinary incontinence. <Anni Painter APRN - Last Filed: 04/23/25 01:55> Related Data Home Medications: Home Medications ?Medication ?Instructions ?Recorded ?Confirmed ?Last Taken ?Type buprenorphine 8 mg-naloxone 2 mg 1 film sublingual USE ASDIRECTD 10/21/21 03/19/22 Unknown History sublingual film diazepam 10 mg tablet (Valium) 10 mg PO BID 10/21/21 0 03/19/22 Unknown History gabapentin 600 mg tablet 600 mg PO TID 10/21/2103/19 Unknown History levothyroxine 75 mcg tablet 75 mcg PO DAILY 10/21/21 0 03/19/22 Unknown History albuterol sulfate 90 mcg/actuation 90 mcg inhalation U SEASDIRECTD 03/19/22 03/19/22 Unknown History aerosol inhaler aspirin 81 mg tablet 81 mg PO DAILY 03/19/2202/28 Unknown History glycopyrrolate 9 mcg-formoterol 1 inh inhalation USEAS DIRECTD 03/19/22 03/19/22 Unknown History 4.8 mcg HFA aerosol inhaler (Bevespi AskYouphere) <Anni Painter APRN - Last Filed: 04/23/25 01:55> Allergies/Adverse Reactions: Allergies Allergy/AdvReac Type Severity Reaction Status Date / Time linezolid Allergy Intermediate Rash Verified 04/22/25 17:57 amoxicillin Allergy Mild Unknown Verified 04/22/25 17:57 paroxetine Allergy Mild Unknown Verified 04/22/25 17:57 Quinolones Allergy Mild Unknown Verified 04/22/25 17:57 amitriptyline Allergy Unknown Unknown Verified 04/22/25 17:57 ciprofloxacin Allergy Unknown Swelling Verified 04/22/25 17:57 BUPROPION HCL Allergy Unknown Unknown Uncoded 04/22/25 17:57 PROCHLORPERAZINE EDISYLATE Allergy Unknown Unknown Uncoded 04/22/25 17:57 PROCHLORPERAZINE MALEATE Allergy Unknown Unknown Uncoded 04/22/25 17:57 <Anni Painter APRN - Last Filed: 04/23/25 01:55> Review of Systems 2 Review of Systems: All systems reviewed & are unremarkable except as noted in HPI and below <Anni Painter APRN - Last Filed: 04/23/25 01:55> [facility] Past Medical History Medical History: Medical History Osteoporosis COPD (chronic obstructive pulmonary disease) Hypertension Hepatitis C Atrial fibrillation Emphysema/COPD <Anni Painter APRN - Last Filed: 04/23/25 01:55> Surgical History Surgical History: Surgical History History of hysterectomy History of cholecystectomy History of tonsillectomy <Anni Painter APRN - Last Filed: 04/23/25 01:55> Family History Family History: Family History Other Diabetes mellitus Family history of arthritis Family history of cardiovascular disease Hypertension <Anni Painter APRN - Last Filed: 04/23/25 01:55> Social History Social History: Social History Smoking status: Current every day smoker Alcohol intake: never Substance use type: marijuana <Anni Painter APRN - Last Filed: 04/23/25 01:55> Exam 2 Narrative: GENERAL: Well appearing, well-nourished, non-toxic, in no acute distress. HEAD: Normocephalic, atraumatic. NECK: Supple. No adenopathy, no masses. RESPIRATORY: Airway patent, respirations nonlabored. Clear to auscultation bilaterally, no rales, rhonchi, wheezing. CARDIOVASCULAR: Regular rate and rhythm without murmurs, rubs, or gallops. Peripheral pulses 2+ and equal bilaterally. ABDOMINAL: Soft, nontender, nondistended, no hepatosplenomegaly. Normoactive BS. MUSCULOSKELETAL: Moves all extremities. Strength/ROM intact without gross deformities. Hip joints and knee joints intact without increased pain with manipulation. Mild knee edema bilaterally. SKIN: Warm, dry, normal color. No rashes. Tiny abrasion to patient's right knee, minimal amount of redness to right and left knees. NEURO: A&O X3. Speech clear. Cranial nerves II-XII intact. No ataxic movements. PSYCHIATRIC: Appropriate mood and affect. Normal interaction. <Anni Painter APRN - Last Filed: 04/23/25 01:55> Course FIELD INSURANCE SALES MANAGER/PA Physician Supervision This visit was performed by both a physician and an APC. For this patient encounter, I reviewed the FIELD INSURANCE SALES MANAGER or PA documentation, treatment plan, and medical decision making and had [id number] time with this patient. I performed all aspects of the MDM as documented. <Erin Osborne MD - Last Filed: 04/23/25 02:11> Vital Signs Vital signs: Vital Signs Temperature 98.7 F 04/22/25 17:45 Pulse Rate 95 04/22/25 17:45 Respiratory Rate 12 04/22/25 17:45 Blood Pressure 146/80 H 04/22/25 17:45 Pulse Oximetry 94 04/22/25 17:45 Oxygen Delivery Room Air 04/22/25 17:45 Temperature 98.7 F 04/22/25 17:45 Pulse Rate 85 04/22/25 23:18 Respiratory Rate 15 04/22/25 23:18 Blood Pressure 133/74 04/22/25 23:18 Pulse Oximetry 93 04/22/25 23:18 Oxygen Delivery Room Air 04/22/25 17:45 <Anni Painter APRN - Last Filed: 04/23/25 01:55> Vital Signs Temperature 98.7 F 04/22/25 17:45 Pulse Rate 95 04/22/25 17:45 Respiratory Rate 12 04/22/25 17:45 Blood Pressure 146/80 H 04/22/25 17:45 Pulse Oximetry 94 04/22/25 17:45 Oxygen Delivery Room Air 04/22/25 17:45 Temperature 98.7 F 04/22/25 17:45 Pulse Rate 85 04/22/25 23:18 Respiratory Rate 15 04/22/25 23:18 Blood Pressure 133/74 04/22/25 23:18 Pulse Oximetry 93 04/22/25 23:18 Oxygen Delivery Room Air 04/22/25 17:45 <Erin Osborne MD - Last Filed: 04/23/25 02:11> MDM - Fall MDM Narrative Medical decision making narrative: Patient is a 70-year-old female who presents to the ER after having 2 recent ground level falls. She reports her last fall was yesterday. After her 1st fall she started experiencing right knee pain and right hip pain. After yesterday's fall she endorses left knee pain. Patient is unsure why she fell but reports ?my legs felt like they just gave out on me. She believes she is on blood thinners but does not know why she takes min. patient also endorses a history of COPD, high blood pressure, an abnormal thyroid levels. Patient denies any calf pain, numbness or tingling in lower extremities, saddle anesthesia, head injury, or urinary incontinence. Labs Ordered: CBC, CMP, UA, repeat BMP Imaging Ordered: Right hip x-ray, left knee x-ray, right knee x-ray Medications Ordered: 1 L normal saline IV bolus Results: Patient's CBC indicates a white blood cell count of 3.8, RBC of 4.10, hemoglobin of 11.5, platelets of 64. Her CMP indicates a BUN of 32, creatinine of 1.17, estimated GFR 53, and alk-phos of 127. Patient's urinalysis did not indicate any urinary tract infection. Her right knee x-ray indicates no acute osseous pathology. Patient's left knee x-ray indicates no acute osseous pathology, healed proximal fibular metaphyseal fracture. Her pelvis as x-ray indicates no acute osseous pathology. Diagnosis: Mild MARCIANO, fall Patient Education/Shared MDM: Results of lab work and imaging shared with patient. Her BMP was repeated to ensure patient's creatinine and BUN are not elevating. Patient's lab results were stable. Her white blood cell platelet counts were both low but this is consistent with previous lab work results. Patient's BUN and creatinine were elevated from her readings 3 years ago, but had consistent results 2 hours later. Patient strongly advised to maintain hydration status upon discharge and follow-up with her PCP as soon as possible. She will not be discharged home with any new prescriptions. Strict return precautions provided. Patient verbalized understanding and is in agreement with plan. Vital signs stable at time of discharge. All questions answered. *2400-Upon further discussion with patient, she does not feel comfortable returning to her apartment. Initially patient described her living conditions as a place where she receives additional medical help, but after discussion with her daughter it was determined patient lives independently in a intermediate community. Patient reports she would like to be admitted to the hospital since she does not know why she has been falling over the past month. RN spoke with patient's daughter who reports she has not seen patient for a while but she knows she has had increased falls recently. Patient also reports she has a history opiate addiction and takes Buprenorphine and naloxone SL for cravings. She reports she has been clean for approximately 6 years.. <Anni Painter, CORPORATE SALES TRAINER - Last Filed: 04/23/25 01:55> Patient is a 70-year-old female who presents to the ER after having 2 recent ground level falls. She reports her last fall was yesterday. After her 1st fall she started experiencing right knee pain and right hip pain. After yesterday's fall she endorses left knee pain. Patient is unsure why she fell but reports ?my legs felt like they just gave out on me. She believes she is on blood thinners but does not know why she takes min. patient also endorses a history of COPD, high blood pressure, an abnormal thyroid levels. Patient denies any calf pain, numbness or tingling in lower extremities, saddle anesthesia, head injury, or urinary incontinence. Labs Ordered: CBC, CMP, UA, repeat BMP Imaging Ordered: Right hip x-ray, left knee x-ray, right knee x-ray Medications Ordered: 1 L normal saline IV bolus Results: Patient's CBC indicates a white blood cell count of 3.8, RBC of 4.10, hemoglobin of 11.5, platelets of 64. Her CMP indicates a BUN of 32, creatinine of 1.17, estimated GFR 53, and alk-phos of 127. Patient's urinalysis did not indicate any urinary tract infection. Her right knee x-ray indicates no acute osseous pathology. Patient's left knee x-ray indicates no acute osseous pathology, healed proximal fibular metaphyseal fracture. Her pelvis as x-ray indicates no acute osseous pathology. Diagnosis: Mild MARCIANO, fall Patient Education/Shared MDM: Results of lab work and imaging shared with patient. Her BMP was repeated to ensure patient's creatinine and BUN are not elevating. Patient's lab results were stable. Her white blood cell platelet counts were both low but this is consistent with previous lab work results. Patient's BUN and creatinine were elevated from her readings 3 years ago, but had consistent results 2 hours later. Patient strongly advised to maintain hydration status upon discharge and follow-up with her PCP as soon as possible. She will not be discharged home with any new prescriptions. Strict return precautions provided. Patient verbalized understanding and is in agreement with plan. Vital signs stable at time of discharge. All questions answered. *2400-Upon further discussion with patient, she does not feel comfortable returning to her apartment. Initially patient described her living conditions as a place where she receives additional medical help, but after discussion with her daughter it was determined patient lives independently in a intermediate community. Patient reports she would like to be admitted to the hospital since she does not know why she has been falling over the past month. RN spoke with patient's daughter who reports she has not seen patient for a while but she knows she has had increased falls recently. Patient also reports she has a history opiate addiction and takes Buprenorphine and naloxone SL for cravings. She reports she has been clean for approximately 6 years.. Case was discussed with the on-call hospitalist Dr. Hazel at [phone] and she accepted admission for generalized weakness, recurrent falls and failure to thrive. PT/OT consultation were also placed. <Erin Osborne MD - Last Filed: 04/23/25 02:11> Differential Diagnosis Differential diagnosis: Likely syncope and other (Knee fracture, knee dislocation, hip fracture, hip dislocation, dehydration, substance abuse) <Anni Painter APRN - Last Filed: 04/23/25 01:55> Lab Data Attestation: I reviewed the patient's lab results. <Anni Painter APRN - Last Filed: 04/23/25 01:55> Result diagrams: 04/22/25 20:19 04/22/25 22:25 <Anni Painter APRN - Last Filed: 04/23/25 01:55> Labs: Lab Results 04/22/25 04/22/25 04/23/25 Range/Units 20:19 22:25 00:43 WBC 3.8 L (4.5-10.0) K/mm3 RBC 4.10 L (4.2-5.4) M/mm3 Hgb 11.5 L D (12.0-15.0) g/dL Hct 37.1 (37.0-47.0) % MCV 90.5 (80-100) fl MCH 28.0 (26-34) pg MCHC 31.0 L (32-36) g/dl RDW 14.3 (11.5-14.5) % Plt Count 64 L (150-375) k/mm3 MPV 12.7 H (7.4-10.4) fl Immature Gran % (Auto) 0.3 (0-0.5) % Neut % (Auto) 61.8 (45.5-73.1) % Lymph % (Auto) 24.2 (18.3-44.2) % [place] % (Auto) 6.6 (2.6-8.5) % Eos % (Auto) 6.6 H (0-4.4) % Baso % (Auto) 0.5 (0.2-1.2) % Lymph # (Auto) 0.91 (0.9-3.2) K/mm3 [place] # (Auto) 0.3 (0.1-0.6) K/mm3 Eos # (Auto) 0.3 (0-0.3) K/mm3 Baso # (Auto) 0.0 (0.0-0.1) K/mm3 Abs Immat Gran (auto) 0.01 (0.00-0.031) K/mm3 Absolute Neuts (auto) 2.3 (1.3-6.7) K/mm3 Absolute Nucleated RBC 0.000 (0.0-0.012) K/mm3 Band Neutrophils % Not Reportable Nucleated RBC % 0.0 (0.0-0.2) % Platelet Estimate Decreased (Adequate) % Immature Plt Fraction 7.8 (0.9-11.2) % Schistocytes None seen PT (11.1-14.7) Seconds INR APTT (22.3-36.8) Seconds Sodium 139 139 (137-145) mmol/L Potassium 4.6 4.5 (3.4-5.0) mmol/L Chloride 107 107 (98-107) mmol/L Carbon Dioxide 27 25 (22-30) mmol/L Anion Gap 5 7 (4-12) mmol/L BUN 32 H D 33 H (7-17) mg/dL Creatinine 1.17 H 1.04 H (0.7-1.0) mg/dL Estim Creat Clear Calc 40 45 ml/min Estimated GFR 46 L 53 L (59 - ) Glucose 92 93 (65-110) mg/dL POC Capillary Glucose 161 H (65-105) mg/dl Calcium 9.6 9.4 (8.4-10.2) mg/dL Total Bilirubin 0.7 (0.2-1.3) mg/dL AST 33 (14-36) U/L ALT 22 (6-35) U/L Alkaline Phosphatase 127 H (38-126) U/L Total Creatine Kinase 384 H (30-135) U/L Total Protein 7.4 (6.3-8.2) g/dL Albumin 4.1 (3.5-5.1) g/dL Urine Color Yellow (Yellow) Urine Appearance Clear (Clear) Urine pH 5.5 (5.0-9.0) Ur Specific [place] 1.016 (1.001-1.035) Urine Protein Negative (Negative) mg/dL Urine Glucose (UA) Negative (Negative) mg/dL Urine Ketones Negative (Negative) mg/dL Ur Blood (Man) Negative (Negative) Urine Nitrate Negative (Negative) Urine Bilirubin Negative (Negative) Urine Urobilinogen 0.2 (<2.0) mg/dL Leukocyte Esterase Rfl Negative (Negative) ANA/UL Urine Opiates Screen Negative (Negative) Urine Methadone Screen Negative (Negative) Ur Barbiturates Screen Negative (Negative) Ur Phencyclidine Scrn Negative (Negative) Ur Amphetamine Screen Negative (Negative) U Benzodiazepines Scrn Positive A (Negative) Urine Cocaine Screen Negative (Negative) U Cannabinoids Screen Negative (Negative) 04/23/25 Range/Units 00:59 WBC (4.5-10.0) K/mm3 RBC (4.2-5.4) M/mm3 Hgb (12.0-15.0) g/dL Hct (37.0-47.0) % MCV (80-100) fl MCH (26-34) pg MCHC (32-36) g/dl RDW (11.5-14.5) % Plt Count (150-375) k/mm3 MPV (7.4-10.4) fl Immature Gran % (Auto) (0-0.5) % Neut % (Auto) (45.5-73.1) % Lymph % (Auto) (18.3-44.2) % [place] % (Auto) (2.6-8.5) % Eos % (Auto) (0-4.4) % Baso % (Auto) (0.2-1.2) % Lymph # (Auto) (0.9-3.2) K/mm3 [place] # (Auto) (0.1-0.6) K/mm3 Eos # (Auto) (0-0.3) K/mm3 Baso # (Auto) (0.0-0.1) K/mm3 Abs Immat Gran (auto) (0.00-0.031) K/mm3 Absolute Neuts (auto) (1.3-6.7) K/mm3 Absolute Nucleated RBC (0.0-0.012) K/mm3 Band Neutrophils % Nucleated RBC % (0.0-0.2) % Platelet Estimate (Adequate) % Immature Plt Fraction (0.9-11.2) % Schistocytes PT 14.8 H (11.1-14.7) Seconds INR 1.2 APTT 29.4 (22.3-36.8) Seconds Sodium (137-145) mmol/L Potassium (3.4-5.0) mmol/L Chloride (98-107) mmol/L Carbon Dioxide (22-30) mmol/L Anion Gap (4-12) mmol/L BUN (7-17) mg/dL Creatinine (0.7-1.0) mg/dL Estim Creat Clear Calc ml/min Estimated GFR (59 - ) Glucose (65-110) mg/dL POC Capillary Glucose (65-105) mg/dl Calcium (8.4-10.2) mg/dL Total Bilirubin (0.2-1.3) mg/dL AST (14-36) U/L ALT (6-35) U/L Alkaline Phosphatase (38-126) U/L Total Creatine Kinase (30-135) U/L Total Protein (6.3-8.2) g/dL Albumin (3.5-5.1) g/dL Urine Color (Yellow) Urine Appearance (Clear) Urine pH (5.0-9.0) Ur Specific [place] (1.001-1.035) Urine Protein (Negative) mg/dL Urine Glucose (UA) (Negative) mg/dL Urine Ketones (Negative) mg/dL Ur Blood (Man) (Negative) Urine Nitrate (Negative) Urine Bilirubin (Negative) Urine Urobilinogen (<2.0) mg/dL Leukocyte Esterase Rfl (Negative) ANA/UL Urine Opiates Screen (Negative) Urine Methadone Screen (Negative) Ur Barbiturates Screen (Negative) Ur Phencyclidine Scrn (Negative) Ur Amphetamine Screen (Negative) U Benzodiazepines Scrn (Negative) Urine Cocaine Screen (Negative) U Cannabinoids Screen (Negative) <Anni Painter, CORPORATE SALES TRAINER - Last Filed: 04/23/25 01:55> Lab Results 04/22/25 04/22/25 04/23/25 Range/Units 20:19 22:25 00:43 WBC 3.8 L (4.5-10.0) K/mm3 RBC 4.10 L (4.2-5.4) M/mm3 Hgb 11.5 L D (12.0-15.0) g/dL Hct 37.1 (37.0-47.0) % MCV 90.5 (80-100) fl MCH 28.0 (26-34) pg MCHC 31.0 L (32-36) g/dl RDW 14.3 (11.5-14.5) % Plt Count 64 L (150-375) k/mm3 MPV 12.7 H (7.4-10.4) fl Immature Gran % (Auto) 0.3 (0-0.5) % Neut % (Auto) 61.8 (45.5-73.1) % Lymph % (Auto) 24.2 (18.3-44.2) % [place] % (Auto) 6.6 (2.6-8.5) % Eos % (Auto) 6.6 H (0-4.4) % Baso % (Auto) 0.5 (0.2-1.2) % Lymph # (Auto) 0.91 (0.9-3.2) K/mm3 [place] # (Auto) 0.3 (0.1-0.6) K/mm3 Eos # (Auto) 0.3 (0-0.3) K/mm3 Baso # (Auto) 0.0 (0.0-0.1) K/mm3 Abs Immat Gran (auto) 0.01 (0.00-0.031) K/mm3 Absolute Neuts (auto) 2.3 (1.3-6.7) K/mm3 Absolute Nucleated RBC 0.000 (0.0-0.012) K/mm3 Band Neutrophils % Not Reportable Nucleated RBC % 0.0 (0.0-0.2) % Platelet Estimate Decreased (Adequate) % Immature Plt Fraction 7.8 (0.9-11.2) % Schistocytes None seen PT (11.1-14.7) Seconds INR APTT (22.3-36.8) Seconds Sodium 139 139 (137-145) mmol/L Potassium 4.6 4.5 (3.4-5.0) mmol/L Chloride 107 107 (98-107) mmol/L Carbon Dioxide 27 25 (22-30) mmol/L Anion Gap 5 7 (4-12) mmol/L BUN 32 H D 33 H (7-17) mg/dL Creatinine 1.17 H 1.04 H (0.7-1.0) mg/dL Estim Creat Clear Calc 40 45 ml/min Estimated GFR 46 L 53 L (59 - ) Glucose 92 93 (65-110) mg/dL POC Capillary Glucose 161 H (65-105) mg/dl Calcium 9.6 9.4 (8.4-10.2) mg/dL Total Bilirubin 0.7 (0.2-1.3) mg/dL AST 33 (14-36) U/L ALT 22 (6-35) U/L Alkaline Phosphatase 127 H (38-126) U/L Total Creatine Kinase 384 H (30-135) U/L Total Protein 7.4 (6.3-8.2) g/dL Albumin 4.1 (3.5-5.1) g/dL Urine Color Yellow (Yellow) Urine Appearance Clear (Clear) Urine pH 5.5 (5.0-9.0) Ur Specific [place] 1.016 (1.001-1.035) Urine Protein Negative (Negative) mg/dL Urine Glucose (UA) Negative (Negative) mg/dL Urine Ketones Negative (Negative) mg/dL Ur Blood (Man) Negative (Negative) Urine Nitrate Negative (Negative) Urine Bilirubin Negative (Negative) Urine Urobilinogen 0.2 (<2.0) mg/dL Leukocyte Esterase Rfl Negative (Negative) ANA/UL Urine Opiates Screen Negative (Negative) Urine Methadone Screen Negative (Negative) Ur Barbiturates Screen Negative (Negative) Ur Phencyclidine Scrn Negative (Negative) Ur Amphetamine Screen Negative (Negative) U Benzodiazepines Scrn Positive A (Negative) Urine Cocaine Screen Negative (Negative) U Cannabinoids Screen Negative (Negative) 04/23/25 Range/Units 00:59 WBC (4.5-10.0) K/mm3 RBC (4.2-5.4) M/mm3 Hgb (12.0-15.0) g/dL Hct (37.0-47.0) % MCV (80-100) fl MCH (26-34) pg MCHC (32-36) g/dl RDW (11.5-14.5) % Plt Count (150-375) k/mm3 MPV (7.4-10.4) fl Immature Gran % (Auto) (0-0.5) % Neut % (Auto) (45.5-73.1) % Lymph % (Auto) (18.3-44.2) % [place] % (Auto) (2.6-8.5) % Eos % (Auto) (0-4.4) % Baso % (Auto) (0.2-1.2) % Lymph # (Auto) (0.9-3.2) K/mm3 [place] # (Auto) (0.1-0.6) K/mm3 Eos # (Auto) (0-0.3) K/mm3 Baso # (Auto) (0.0-0.1) K/mm3 Abs Immat Gran (auto) (0.00-0.031) K/mm3 Absolute Neuts (auto) (1.3-6.7) K/mm3 Absolute Nucleated RBC (0.0-0.012) K/mm3 Band Neutrophils % Nucleated RBC % (0.0-0.2) % Platelet Estimate (Adequate) % Immature Plt Fraction (0.9-11.2) % Schistocytes PT 14.8 H (11.1-14.7) Seconds INR 1.2 APTT 29.4 (22.3-36.8) Seconds Sodium (137-145) mmol/L Potassium (3.4-5.0) mmol/L Chloride (98-107) mmol/L Carbon Dioxide (22-30) mmol/L Anion Gap (4-12) mmol/L BUN (7-17) mg/dL Creatinine (0.7-1.0) mg/dL Estim Creat Clear Calc ml/min Estimated GFR (59 - ) Glucose (65-110) mg/dL POC Capillary Glucose (65-105) mg/dl Calcium (8.4-10.2) mg/dL Total Bilirubin (0.2-1.3) mg/dL AST (14-36) U/L ALT (6-35) U/L Alkaline Phosphatase (38-126) U/L Total Creatine Kinase (30-135) U/L Total Protein (6.3-8.2) g/dL Albumin (3.5-5.1) g/dL Urine Color (Yellow) Urine Appearance (Clear) Urine pH (5.0-9.0) Ur Specific [place] (1.001-1.035) Urine Protein (Negative) mg/dL Urine Glucose (UA) (Negative) mg/dL Urine Ketones (Negative) mg/dL Ur Blood (Man) (Negative) Urine Nitrate (Negative) Urine Bilirubin (Negative) Urine Urobilinogen (<2.0) mg/dL Leukocyte Esterase Rfl (Negative) ANA/UL Urine Opiates Screen (Negative) Urine Methadone Screen (Negative) Ur Barbiturates Screen (Negative) Ur Phencyclidine Scrn (Negative) Ur Amphetamine Screen (Negative) U Benzodiazepines Scrn (Negative) Urine Cocaine Screen (Negative) U Cannabinoids Screen (Negative) <Erin Osborne MD - Last Filed: 04/23/25 02:11> Imaging Data Attestation: I personally reviewed and interpreted this imaging study as follows: < Anni Painter APRN - Last Filed: 04/23/25 01:55> Radiologist's impression: Her right knee x-ray indicates no acute osseous pathology. Patient's left knee x-ray indicates no acute osseous pathology, healed proximal fibular metaphyseal fracture. Her pelvis as x-ray indicates no acute osseous pathology. <Anni Painter APRN - Last Filed: 04/23/25 01:55> Discharge Plan Discharge Clinical Impression: Injury of knee, left, Right knee injury, Dehydration, mild, MARCIANO (acute kidney injury), Generalized weakness, Recurrent falls <Anni Painter APRN - Last Filed: 04/23/25 01:55> Patient Disposition: NH Long Term/Asst Living <Anni Painter APRN - Last Filed: 04/23/25 01:55> Condition: Stable <Anni Painter APRN - Last Filed: 04/23/25 01:55> Instructions: Antibiotic Form, Contusion in Adults (ED) <Anni Painter APRN - Last Filed: 04/23/25 01:55> Additional Instructions: Please return to the ER with any worsening symptoms. Follow-up with primary care provider as soon as possible. Take all medications as prescribed, including regularly scheduled medications. You may take Tylenol as needed for pain control. Please remember to drink lots of water and use your walker for ambulation. <Anni Painter APRN - Last Filed: 04/23/25 01:55> Patient Language: Croatian <Anni Painter APRN - Last Filed: 04/23/25 01:55> Prescriptions: No Action albuterol sulfate 90 mcg/actuation HFA aerosol inhaler 90 mcg INHALATION USEASDIRECTD Bevespi Aerosphere 9-4.8 mcg HFA aerosol inhaler 1 inh INHALATION USEASDIRECTD aspirin 81 mg Tablet 81 mg PO DAILY gabapentin 600 mg Tablet 600 mg PO TID diazepam [Valium] 10 mg Tablet 10 mg PO BID levothyroxine 75 mcg tablet 75 mcg PO DAILY buprenorphine-naloxone 8-2 mg film 1 film sublingual USEASDIRECTD ipratropium-albuterol 0.5 mg-3 mg(2.5 mg base)/3 mL solution for nebulization 3 ml inhalation QID PRN (Reason: shortness of breath) Qty: 90 0RF <Anni Painter APRN - Last Filed: 04/23/25 01:55> Follow-up/Referrals: Carlos Arevalo MD [Primary Care Provider, Hospitalist] <Anni Painter APRN - Last Filed: 04/23/25 01:55> Time of Disposition: 23:15 <Anni Painter APRN - Last Filed: 04/23/25 01:55> 23:15 <Erin Osborne MD - Last Filed: 04/23/25 02:11>
[2025-04-22 20:27] LABS: Add Urine Microscopic? NO; Appearance Urine Clear (Clear); Glucose Urine UA Negative (Negative); Hematocrit 37.1 % (37.0-47.0); Hemoglobin 11.5 g/dL (12.0-15.0); Immature Granulocyte Percent A 0.3 % (0-0.5); Immature Platelet Fraction Pct 7.8 % (0.9-11.2); Leukocyte Esterase Ur Negative LEU/UL (Negative); Lymphocytes Absolute Auto 0.91 K/mm3 (0.9-3.2); Mean Corpuscular HGB Conc 31.0 g/dl (32-36); Mean Corpuscular Hemoglobin 28.0 pg (26-34); Mean Corpuscular Volume 90.5 fl (80-100); Nitrate Urine Negative (Negative); Nucleated Red Blood Cells Absolute Auto 0.000 K/mm3 (0.0-0.012); Nucleated Red Blood Cells Perc 0.0 % (0.0-0.2); Platelet Count Result 64 k/mm3 (150-375); Red Blood Count 4.10 M/mm3 (4.2-5.4); Specific Grav Ur 1.016 (1.001-1.035); White Blood Count 3.8 K/mm3 (4.5-10.0)
[2025-04-22 20:36] LABS: Alanine Aminotransferase 22 U/L (6-35); Albumin Level 4.1 g/dL (3.5-5.1); Alkaline Phosphatase 127 U/L (38-126); Anion Gap 5 mmol/L (4-12); Aspartate Amino Transferase 33 U/L (14-36); Bilirubin,Total 0.7 mg/dL (0.2-1.3); Blood Urea Nitrogen 32 mg/dL (7-17); Calcium 9.6 mg/dL (8.4-10.2); Carbon Dioxide 27 mmol/L (22-30); Chloride 107 mmol/L (98-107); Estimated CRCL calculation 40 ml/min; Estimated Glomerular Filt Rate 46; Glucose 92 mg/dL (65-110); Potassium 4.6 mmol/L (3.4-5.0); Schistocytes None Seen; Sodium 139 mmol/L (137-145); Total Protein 7.4 g/dL (6.3-8.2)
[2025-04-22] MEDS: SODIUM CHLORIDE 0.9% IV 1,000 ML 999 ML IV CONT (21:45)
[2025-04-22 22:44] LABS: Anion Gap 7 mmol/L (4-12); Blood Urea Nitrogen 33 mg/dL (7-17); Calcium 9.4 mg/dL (8.4-10.2); Carbon Dioxide 25 mmol/L (22-30); Chloride 107 mmol/L (98-107); Estimated CRCL calculation 45 ml/min; Estimated Glomerular Filt Rate 53; Glucose 93 mg/dL (65-110); Potassium 4.5 mmol/L (3.4-5.0); Sodium 139 mmol/L (137-145)
[2025-04-23] VITALS (8 sets, daily range): BP systolic 124–162; BP diastolic 66–79; PULSE 84–90; RESP 14–20; TEMP 36.2–36.8; O2SAT 90–97; BMI 28.9
--- NOTE | 2025-04-23 | ECG_ITS ---
Test Date: 2025-04-23 00:41:56 Measurements Intervals [place] Rate: 85 P: 62 OK: 152 QRS: 53 QRSD: 86 T: -24 QT: 321 QTc: 382 Interpretive Statements SINUS RHYTHM BORDERLINE ST-T WAVE ABNORMALITY- DIFFUSE LEADS BASELINE ARTIFACT- I, II, III, AVR, AVL, AVF, V1-V6 BORDERLINE ECG No previous ECG available for comparison Electronically Signed On 04-23-2025 06:16:12 CDT by Fausto Dacosta D.O.
--- NOTE | 2025-04-23 00:01 | PC.NURSE ---
2350 This RN contacted patients daughter to see where patient lived and her living situation. Patients daughter Agustina states patient lives in a [facility] in [place] where the patient cares for herself. CALENDAR CONTROL CLERK BLOOD BANK notified. 0000 Attempted to call patients daughter to request more information per CALENDAR CONTROL CLERK BLOOD BANK. No answer but message was left. 0002 Patients daughter Agustina, calls back. Patients daughter states patient states she has help a few times a week and sometimes takes too much of her medications. She also states she has not seen patient in a while so unsure of what her normal baseline is for orientation. Agustina also states patient has fallen more frequently, sees [facility] for previous addiction, but unsure if she is compliant with her medications or treatment. Agustina states she is not sure of what medications patient is on. Agustina does state she request more help for her mother at home due to I don't see her much and my brother lives far away. CALENDAR CONTROL CLERK BLOOD BANK notified of information.
[2025-04-23 00:55] LABS: Creatine Kinase 384 U/L (30-135)
[2025-04-23] MEDS: KETOROLAC 15 MG/ML VIAL (*BKC) IV PUSH (01:01)
[2025-04-23 01:17] LABS: INR 1.2; Prothrombin Time 14.8 Seconds (11.1-14.7)
[2025-04-23 01:18] LABS: Partial Thromboplastin Time 29.4 Seconds (22.3-36.8)
[2025-04-23 01:21] LABS: Cannabinoid Screen Urine Negative (Negative)
[2025-04-23 02:57] LABS: Influenza A QL RT-PCR Negative (Negative); Influenza B QL RT-PCR Negative (Negative); RSV RNA, RT-PCR Negative (Negative); SARS-CoV-2 RNA PCR Negative (Negative)
--- NOTE | 2025-04-23 04:14 | ADMGEN ---
This patient, Aurora Hill, was admitted to [facility] Surg Room 329-01. Patient/family oriented to hospital policies and general routines including ID bracelet, bed and alarms, visiting hours, pain management, procedures, bathroom and other care routines, personal items, smoking policy, room service/diet, and visiting hours. Information on how to activate the Rapid Response Team has been discussed. Patient/Family are encouraged to report perceived risks to care and to ask questions if they do not understand what they are told or what they should do.
[2025-04-23] MEDS: ACETAMINOPHEN 500 MG TABLET PO (06:43)
[2025-04-23] MEDS: NICOTINE (*PBKC) 14 MG PATCH 1 PATCH TRANSDERM (06:47)
[2025-04-23 08:31] LABS: Hematocrit 33.9 % (37.0-47.0); Hemoglobin 10.5 g/dL (12.0-15.0); Immature Granulocyte Percent A 0.4 % (0-0.5); Immature Platelet Fraction Pct 7.3 % (0.9-11.2); Lymphocytes Absolute Auto 0.65 K/mm3 (0.9-3.2); Mean Corpuscular HGB Conc 31.0 g/dl (32-36); Mean Corpuscular Hemoglobin 28.3 pg (26-34); Mean Corpuscular Volume 91.4 fl (80-100); Nucleated Red Blood Cells Absolute Auto 0.000 K/mm3 (0.0-0.012); Nucleated Red Blood Cells Perc 0.0 % (0.0-0.2); Platelet Count Result 59 k/mm3 (150-375); Red Blood Count 3.71 M/mm3 (4.2-5.4); White Blood Count 2.7 K/mm3 (4.5-10.0)
[2025-04-23] MEDS: LIDOCAINE 5% PATCH 1 PATCH TRANSDERM (08:44)
[2025-04-23 08:48] LABS: Alanine Aminotransferase 22 U/L (6-35); Albumin Level 4.0 g/dL (3.5-5.1); Alkaline Phosphatase 114 U/L (38-126); Anion Gap 7 mmol/L (4-12); Aspartate Amino Transferase 36 U/L (14-36); Bilirubin,Total 0.6 mg/dL (0.2-1.3); Blood Urea Nitrogen 33 mg/dL (7-17); Calcium 9.2 mg/dL (8.4-10.2); Carbon Dioxide 25 mmol/L (22-30); Chloride 108 mmol/L (98-107); Estimated CRCL calculation 40 ml/min; Estimated Glomerular Filt Rate 45; Glucose 126 mg/dL (65-110); Potassium 5.0 mmol/L (3.4-5.0); Sodium 140 mmol/L (137-145); Total Protein 7.1 g/dL (6.3-8.2)
--- NOTE | 2025-04-23 12:50 | PM.IMHP ---
H&P: HPI History of Present Illness Date/Time: 04/23/25 12:50 Chief Complaint: For recurrent fall Narrative: Aurora Hill is a 70 year old female with pmhx of COPD, history of polysubstance use disorder, hypothyroidism, dyslipidemia, hypertension, overactive bladder who presented last night to the ED for recurrent fall. Hip and myc-x-ray of hip/pelvis and Knee negative for acute fracture or malalignment. CT head shows no acute intracranial abnormality or skull fracture. Patient endorses left hip pain. She is using lidocaine patch for pain control. No electrolyte abnormalities in her chemistry lab results. [facility] Past Medical History Medical History (Updated 04/23/25 @ 12:58 by Alisson Perez MD) Osteoporosis COPD (chronic obstructive pulmonary disease) Hypertension Hepatitis C Atrial fibrillation Emphysema/COPD Surgical History Surgical History History of hysterectomy History of cholecystectomy History of tonsillectomy Family History Family History Other Diabetes mellitus Family history of arthritis Family history of cardiovascular disease Hypertension Social History Social History Smoking packs per day: 0.5 Smoking cigarettes per day: 10.0 Years smoked: 52 Smoking pack-years: 26.00 Smoking status: Current every day smoker Tobacco type: cigarettes Alcohol intake: former Substance use: former Substance use type: former substance user, marijuana and opiates Last use: 6yrs clean Lack of Transportation: YES Lack of Food: Never True Current Housing: I Have Housing Concerned About Future Housing: No Difficulty Paying Gas/Electric Bills: No Difficulty Paying for Meds: No Currently Unemployed: No Education: Grade School Difficulty w/ Childcare or Family Care: No Spiritual care concerns: No Meds Home Medications and Allergies Home Medications ?Medication ?Instructions ?Recorded ?Confirmed ?Type albuterol sulfate 90 mcg/actuation 90 mcg inhalation USEASDIRECTD 03/19/22 04/23/25 History aerosol inhaler aspirin 81 mg tablet 81 mg PO DAILY 03/19/22 04/23/25 History atorvastatin 20 mg tablet 20 mg PO DAILY 04/23/25 04/23/25 History buprenorphine 4 mg-naloxone 1 mg 1 film sublingual TID 04/23/25 04/23/25 History sublingual film bupropion HCl 300 mg 24 hr tablet, 300 mg PO DAILY 04/23/25 04/23/25 History extended release clopidogrel 75 mg tablet 75 mg PO DAILY 04/23/25 04/23/25 History diazepam 2 mg tablet 2 mg PO QID 04/23/25 04/23/25 History levothyroxine 88 mcg tablet 88 mcg PO DAILY 04/23/25 04/23/25 History lisinopril 10 1 tablet PO DAILY 04/23/25 04/23/25 History mg-hydrochlorothiazide 12.5 mg tablet olanzapine 20 mg tablet 20 mg PO DAILY 04/23/25 04/23/25 History omeprazole 20 mg capsule,delayed 20 mg PO DAILY 04/23/25 04/23/25 History release ondansetron 4 mg disintegrating 4 mg PO QID PRN nausea and vomiting 04/23/25 04/23/25 History tablet oxybutynin chloride 5 mg 5 mg PO DAILY 04/23/25 04/23/25 History tablet,extended release 24 hr sennosides 8.6 mg tablet (Laxative 8.6 mg PO HS 04/23/25 04/23/25 History (sennosides)) Allergies Allergy/AdvReac Type Severity Reaction Status Date / Time linezolid Allergy Intermediate Rash Verified 04/22/25 17:57 amoxicillin Allergy Mild Unknown Verified 04/22/25 17:57 paroxetine Allergy Mild Unknown Verified 04/22/25 17:57 Quinolones Allergy Mild Unknown Verified 04/22/25 17:57 amitriptyline Allergy Unknown Unknown Verified 04/22/25 17:57 ciprofloxacin Allergy Unknown Swelling Verified 04/22/25 17:57 BUPROPION HCL Allergy Unknown Unknown Uncoded 04/22/25 17:57 PROCHLORPERAZINE EDISYLATE Allergy Unknown Unknown Uncoded 04/22/25 17:57 PROCHLORPERAZINE MALEATE Allergy Unknown Unknown Uncoded 04/22/25 17:57 Vital Signs Vital Signs - 24 hr 04/22/25 17:45 04/22/25 19:00 04/22/25 19:01 Temperature 37.1 C Pulse Rate 95 88 89 Respiratory Rate 12 13 14 Blood Pressure 146/80 H 136/80 Pulse Oximetry 94 Oxygen Delivery Room Air 04/22/25 19:15 04/22/25 19:30 04/22/25 19:45 Temperature Pulse Rate 89 90 84 Respiratory Rate 21 H 24 H 17 Blood Pressure Pulse Oximetry Oxygen Delivery 04/22/25 19:46 04/22/25 20:07 04/22/25 20:15 Temperature Pulse Rate 85 86 85 Respiratory Rate 13 17 13 Blood Pressure 135/78 Pulse Oximetry 91 97 Oxygen Delivery 04/22/25 20:30 04/22/25 20:31 04/22/25 20:45 Temperature Pulse Rate 86 88 85 Respiratory Rate 21 H 18 18 Blood Pressure 127/77 Pulse Oximetry Oxygen Delivery 04/22/25 21:00 04/22/25 21:15 04/22/25 21:16 Temperature Pulse Rate 87 85 87 Respiratory Rate 29 H 16 12 Blood Pressure 146/108 H Pulse Oximetry Oxygen Delivery 04/22/25 21:30 04/22/25 21:45 04/22/25 22:00 Temperature Pulse Rate 85 87 88 Respiratory Rate 20 13 18 Blood Pressure Pulse Oximetry Oxygen Delivery 04/22/25 22:02 04/22/25 22:04 04/22/25 22:15 Temperature Pulse Rate 93 86 84 Respiratory Rate 17 19 13 Blood Pressure 184/106 H 155/102 H Pulse Oximetry Oxygen Delivery 04/22/25 23:18 04/23/25 02:00 04/23/25 03:21 Temperature Pulse Rate 85 85 85 Respiratory Rate 15 14 17 Blood Pressure 133/74 124/69 124/69 Pulse Oximetry 93 93 97 Oxygen Delivery 04/23/25 04:57 04/23/25 06:00 04/23/25 08:44 Temperature 36.8 C Pulse Rate 85 84 Respiratory Rate 17 18 Blood Pressure 150/73 H Pulse Oximetry 97 94 Oxygen Delivery Room Air Room Air Exam Narrative: APPEARANCE: Comfortable, anxious at times EYES: EOMI HEENT: Normocephalic, atraumatic, OMM RESPIRATORY: No respiratory distress Clear to auscultation bilaterally with no rhonchi wheezing or rales. CARDIOVASCULAR: RRR, S1 and S2 without murmurs rubs or gallops. ABDOMINAL: Soft, nontender, nondistended, no rebound or guarding MSK: range of motion to the left lower extremity is limited due to pain of the left hip. No bony tenderness throughout either leg and no deformities. NEURO: Awake and alert. Following commands, speech normal, no focal deficits SKIN:: Warm, dry. No rashes lesions or abrasions PSYCHIATRIC: Normal affect/mood, H&P: Results Labs Labs: Short CBC 04/22/25 04/23/25 Range/Units 20:19 08:05 WBC 3.8 L 2.7 L (4.5-10.0) K/mm3 Hgb 11.5 L D 10.5 L (12.0-15.0) g/dL Hct 37.1 33.9 L (37.0-47.0) % Plt Count 64 L 59 L (150-375) k/mm3 BMP 04/22/25 04/22/25 04/23/25 20:19 22:25 08:05 Sodium 139 139 140 Potassium 4.6 4.5 5.0 Chloride 107 107 108 H Carbon Dioxide 27 25 25 BUN 32 H D 33 H 33 H Creatinine 1.17 H 1.04 H 1.20 H Glucose 92 93 126 H Calcium 9.6 9.4 9.2 Cardiac Enzymes 04/22/25 Range/Units 20:19 Total Creatine Kinase 384 H (30-135) U/L Liver Function 04/22/25 04/23/25 Range/Units 20:19 08:05 Total Bilirubin 0.7 0.6 (0.2-1.3) mg/dL AST 33 36 (14-36) U/L ALT 22 22 (6-35) U/L Alkaline Phosphatase 127 H 114 (38-126) U/L Albumin 4.1 4.0 (3.5-5.1) g/dL Urine 04/22/25 Range/Units 20:19 Urine Color Yellow (Yellow) Urine Appearance Clear (Clear) Urine pH 5.5 (5.0-9.0) Ur Specific [place] 1.016 (1.001-1.035) Urine Protein Negative (Negative) mg/dL Urine Glucose (UA) Negative (Negative) mg/dL Assessment and Plan Assessment and plan (1) Recurrent falls: Code(s): R29.6 - Repeated falls Status: Acute (2) Generalized weakness: Code(s): R53.1 - Weakness Status: Acute (3) MARCIANO (acute kidney injury): Code(s): N17.9 - Acute kidney failure, unspecified Status: Acute (4) Dehydration, mild: Code(s): E86.0 - Dehydration Status: Acute (5) Right knee injury: Code(s): S89.91XA - Unspecified injury of right lower leg, initial encounter Status: Acute (6) Injury of knee, left: Code(s): S89.92XA - Unspecified injury of left lower leg, initial encounter Status: Acute (7) Hypertension: Code(s): I10 - Essential (primary) hypertension Status: Acute (8) Anxiety and depression: Code(s): F41.9 - Anxiety disorder, unspecified; F32.A - Depression, unspecified Status: Acute (9) Substance use disorder: Code(s): F19.90 - Other psychoactive substance use, unspecified, uncomplicated Status: Acute Plan Recurrent fall/generalized weakness CTA head negative for acute intracranial bleed X-ray of hip/pelvis and the knee negative for acute fracture Weakness likely secondary to dehydration Physical therapy for placement She might need skilled PT upon discharge Pain control with lidocaine patch Voltaren gel MARCIANO Avoid nephrogenic agents including NSAIDs and contrast BMP daily and oral intake Dehydration She has adequate oral intake Hypertension Continue Hydrochlorothiazide 12.5 mg daily and lisinopril 10 mg daily Substance use disorder Continue Buprenorphine 4 mg sublingual Anxiety/ depression Continue Valium and Zyprexa Hypothyroidism Continue levothyroxine Dyslipidemia Continue atorvastatin
[2025-04-23] MEDS: diazePAM (*CRX) 2 MG TABLET PO ×3 (13:14→20:31)
[2025-04-23] MEDS: BUPRENORPHINE HCL (*CRX) 2 MG SUBLINGUAL TABLET 4 MG SUBLINGUAL (17:12)
[2025-04-23] MEDS: DICLOFENAC SODIUM 1% 100 GM GEL (*BKC) 1 APPLIC TOPICAL ×2 (17:13→20:31)
[2025-04-23] MEDS: ALBUTEROL SULFATE (*SP) AEROSOL 1 PUFF INHALATION (20:25)
[2025-04-23] MEDS: SENNOSIDES 8.6 MG TABLET PO (20:31)
[2025-04-24 05:13] VITALS: PULSE 86; RESP 20
[2025-04-24] MEDS: ALBUTEROL SULFATE (*SP) AEROSOL 1 PUFF INHALATION ×2 (05:13→13:58)
[2025-04-24 06:00] VITALS: BP 146/71; PULSE 90; RESP 16; TEMP 36.6; O2SAT 89
[2025-04-24] MEDS: LEVOTHYROXINE SODIUM 88 MCG TABLET PO (06:25)
[2025-04-24 08:00] VITALS: O2SAT 94
[2025-04-24 09:04] LABS: Hematocrit 32.7 % (37.0-47.0); Hemoglobin 10.0 g/dL (12.0-15.0); Immature Platelet Fraction Pct 7.4 % (0.9-11.2); Mean Corpuscular HGB Conc 30.6 g/dl (32-36); Mean Corpuscular Hemoglobin 27.9 pg (26-34); Mean Corpuscular Volume 91.3 fl (80-100); Platelet Count Result 53 k/mm3 (150-375); Red Blood Count 3.58 M/mm3 (4.2-5.4); White Blood Count 2.4 K/mm3 (4.5-10.0)
[2025-04-24] MEDS: BUPRENORPHINE HCL (*CRX) 2 MG SUBLINGUAL TABLET 4 MG SUBLINGUAL ×3 (09:13→16:57)
[2025-04-24] MEDS: diazePAM (*CRX) 2 MG TABLET PO ×2 (09:13→13:34)
[2025-04-24] MEDS: ATORVASTATIN 20 MG TABLET PO (09:13)
[2025-04-24] MEDS: LIDOCAINE 5% PATCH 1 PATCH TRANSDERM (09:13)
[2025-04-24] MEDS: oxyBUTYnin CHLORIDE XL 5 MG TAB.ER.24 PO (09:14)
[2025-04-24] MEDS: PANTOPRAZOLE 40 MG TABLET PO (09:14)
[2025-04-24 09:27] LABS: Alanine Aminotransferase 21 U/L (6-35); Albumin Level 3.8 g/dL (3.5-5.1); Alkaline Phosphatase 100 U/L (38-126); Anion Gap 7 mmol/L (4-12); Aspartate Amino Transferase 30 U/L (14-36); Bilirubin,Total 0.6 mg/dL (0.2-1.3); Blood Urea Nitrogen 20 mg/dL (7-17); Calcium 8.9 mg/dL (8.4-10.2); Carbon Dioxide 26 mmol/L (22-30); Chloride 106 mmol/L (98-107); Estimated CRCL calculation 50 ml/min; Estimated Glomerular Filt Rate 59; Glucose 264 mg/dL (65-110); Potassium 4.3 mmol/L (3.4-5.0); Sodium 139 mmol/L (137-145); Total Protein 6.8 g/dL (6.3-8.2)
[2025-04-24] MEDS: NICOTINE (*PBKC) 14 MG PATCH 1 PATCH TRANSDERM (10:01)
--- NOTE | 2025-04-24 11:48 | P.PNIM_ITS ---
Progress Note: A&P Assessment and Plan (1) Recurrent falls: Code(s): R29.6 - Repeated falls Status: Acute (2) Generalized weakness: Code(s): R53.1 - Weakness Status: Acute (3) MARCIANO (acute kidney injury): Code(s): N17.9 - Acute kidney failure, unspecified Status: Acute (4) Dehydration, mild: Code(s): E86.0 - Dehydration Status: Acute (5) Right knee injury: Code(s): S89.91XA - Unspecified injury of right lower leg, initial encounter Status: Acute (6) Injury of knee, left: Code(s): S89.92XA - Unspecified injury of left lower leg, initial encounter Status: Acute (7) Hypertension: Code(s): I10 - Essential (primary) hypertension Status: Acute (8) Anxiety and depression: Code(s): F41.9 - Anxiety disorder, unspecified; F32.A - Depression, unspecified Status: Acute (9) Substance use disorder: Code(s): F19.90 - Other psychoactive substance use, unspecified, uncomplicated Status: Acute Plan * Recurrent fall/generalized weakness Possibly due to Valium Decreased dose of Valium from 2 mg q.i.d. to 1 mg q.i.d. Needs slow tapering to avoid benzodiazepine withdrawal seizures CTA head negative for acute intracranial bleed X-ray of hip/pelvis and the knee negative for acute fracture Weakness likely secondary to dehydration Physical therapy for placement She might need skilled PT upon discharge Pain control with lidocaine patch Voltaren gel * MARCIANO Avoid nephrogenic agents including NSAIDs and contrast BMP daily and oral intake * Dehydration She has adequate oral intake * Hypertension Continue Hydrochlorothiazide 12.5 mg daily and lisinopril 10 mg daily * Substance use disorder Continue Buprenorphine 4 mg sublingual * Anxiety/ depression Continue Valium and Zyprexa * Hypothyroidism Continue levothyroxine * Dyslipidemia Continue atorvastatin Subjective Date/time seen: 04/24/25 11:48 Interval history: Patient has a frequent fall. Possibly due to Valium. Will decrease dose of Valium from 2 mg to 1 mg q.i.d.. Patient needs tapering dose of Valium from PCP Exam Narrative: APPEARANCE: Comfortable, anxious at times EYES: EOMI HEENT: Normocephalic, atraumatic, OMM RESPIRATORY: No respiratory distress Clear to auscultation bilaterally with no rhonchi wheezing or rales. CARDIOVASCULAR: RRR, S1 and S2 without murmurs rubs or gallops. ABDOMINAL: Soft, nontender, nondistended, no rebound or guarding MSK: range of motion to the left lower extremity is limited due to pain of the left hip. No bony tenderness throughout either leg and no deformities. NEURO: Awake and alert. Following commands, speech normal, no focal deficits SKIN:: Warm, dry. No rashes lesions or abrasions PSYCHIATRIC: Normal affect/mood, Objective Data Vital Signs Vital Signs: Vital Signs - 24 hr 04/23/25 13:44 04/23/25 13:58 04/23/25 14:00 Temperature 97.3 F L Pulse Rate 88 Respiratory Rate 18 Blood Pressure 138/66 Pulse Oximetry 95 Oxygen Delivery Room Air Room Air Fraction of Inspired Oxygen 04/23/25 20:00 04/23/25 20:26 04/23/25 20:28 Temperature Pulse Rate 90 90 Respiratory Rate 20 20 Blood Pressure Pulse Oximetry 90 Oxygen Delivery Room Air Room Air Fraction of Inspired Oxygen 21 04/23/25 21:54 04/24/25 05:13 04/24/25 06:00 Temperature 97.1 F L 97.9 F Pulse Rate 90 86 90 Respiratory Rate 20 20 16 Blood Pressure 162/79 H 146/71 H Pulse Oximetry 97 89 L Oxygen Delivery Fraction of Inspired Oxygen 04/24/25 08:00 Temperature Pulse Rate Respiratory Rate Blood Pressure Pulse Oximetry 94 Oxygen Delivery Room Air Fraction of Inspired Oxygen Intake/Output Intake/Output: Intake & Output 04/21/25 04/22/25 04/23/25 04/24/25 23:59 23:59 23:59 23:59 Intake Total 1000 820 490 Output Total 150 Balance 1000 670 490 Meds/Results Medications: Active Medications Generic Name Dose Route Start Last Admin Trade Name Freq PRN Reason Stop Dose Admin Acetaminophen 500 mg 04/23/25 06:27 04/23/25 06:43 Acetaminophen 500 Mg Tablet PO 500 mg Q4H PRN Administration Mild Pain (1-3) or Fever Albuterol 1 puff 04/23/25 12:45 04/24/25 05:13 Albuterol Sulfate (*Sp) Aerosol 1 Puff INHALATION 1 puff Q4HRT PRN Administration Shortness Of Breath Atorvastatin Calcium 20 mg 04/24/25 09:00 04/24/25 09:13 Atorvastatin 20 Mg Tablet PO 20 mg DAILY CECE Administration Buprenorphine HCl 4 mg 04/23/25 17:00 04/24/25 09:13 Buprenorphine Hcl (*Crx) 2 Mg Sublingual Tablet SUBLINGUAL 4 mg TID CECE Administration Diazepam 2 mg 04/23/25 13:00 04/24/25 09:13 Diazepam (*Crx) 2 Mg Tablet PO 2 mg QID CECE Administration Diclofenac Sodium 1 applic 04/23/25 17:00 04/23/25 20:31 Diclofenac Sodium 1% 100 Gm Gel (*Bkc) TOPICAL 1 applic QID CECE Administration Hydrochlorothiazide 12.5 mg 04/24/25 09:00 04/24/25 09:13 Hydrochlorothiazide 12.5 Mg Capsule PO 12.5 mg QAM CECE Administration Levothyroxine Sodium 88 mcg 04/24/25 06:30 04/24/25 06:25 Levothyroxine Sodium 88 Mcg Tablet PO 88 mcg DAILY@0630 CECE Administration Lidocaine 1 patch 04/23/25 09:00 04/24/25 09:13 Lidocaine 5% Patch TRANSDERM 1 patch DAILY CECE Administration Lisinopril 10 mg 04/24/25 09:00 04/24/25 09:13 Lisinopril 10 Mg Tablet PO 10 mg QAM CECE Administration Nicotine 1 patch 04/23/25 06:30 04/24/25 10:01 Nicotine (*Pbkc) 14 Mg Patch TRANSDERM 1 patch DAILY CECE Administration Olanzapine 20 mg 04/24/25 09:00 04/24/25 10:01 Olanzapine 5 Mg Tablet PO 20 mg DAILY CECE Administration Oxybutynin Chloride 5 mg 04/24/25 09:00 04/24/25 09:14 Oxybutynin Chloride Xl 5 Mg Tab.Er.24 PO 5 mg DAILY CECE Administration Pantoprazole Sodium 40 mg 04/24/25 09:00 04/24/25 09:14 Pantoprazole 40 Mg Tablet PO 40 mg QAM CECE Administration Senna 8.6 mg 04/23/25 21:00 04/23/25 20:31 Sennosides 8.6 Mg Tablet PO 8.6 mg HS CECE Administration Radiology Results: ITS Impressions Hip/Pelvis X-Ray 04/23/25 07:12 IMPRESSION: 1: NO ACUTE BONE OR JOINT ABNORMALITY IDENTIFIED. Knee X-Ray 04/23/25 07:15 Impression: 1: Moderate medial compartmental osteoarthritis. Chest X-Ray 04/23/25 08:00 IMPRESSION: 1. No acute cardiopulmonary disease. Head CT 04/23/25 08:21 IMPRESSION: 1. No acute intracranial abnormality. Labs Labs: Laboratory Results - last 24 hr 04/24/25 08:54 WBC 2.4 L RBC 3.58 L Hgb 10.0 L Hct 32.7 L MCV 91.3 MCH 27.9 MCHC 30.6 L RDW 14.5 Plt Count 53 L MPV 13.6 H % Immature Plt Fraction 7.4 Sodium 139 Potassium 4.3 Chloride 106 Carbon Dioxide 26 Anion Gap 7 BUN 20 H D Creatinine 0.94 Estim Creat Clear Calc 50 Estimated GFR 59 Glucose 264 H Calcium 8.9 Total Bilirubin 0.6 AST 30 ALT 21 Alkaline Phosphatase 100 Total Protein 6.8 Albumin 3.8 Hospitalist MIPS Advance Care Plan I have confirmed that the patient's Advanced Care Plan is present, code status is documented, or surrogate decision maker is listed in patient medical record.: Yes Medication Reconciliation I have utilized all available resources to obtain, update and review the patients current medications (includes all prescriptions, OTC, herbals, cannabis, and nutritional supplements).: Yes
[2025-04-24] MEDS: DICLOFENAC SODIUM 1% 100 GM GEL (*BKC) 1 APPLIC TOPICAL ×3 (13:37→21:21)
[2025-04-24 14:00] VITALS: BP 126/69; PULSE 91; RESP 18; TEMP 36.7; O2SAT 90
[2025-04-24] MEDS: diazePAM (*CRX) 2 MG TABLET 1 MG PO (16:57)
[2025-04-24 20:22] VITALS: BP 146/78; PULSE 92; RESP 20; TEMP 36.8; O2SAT 91
[2025-04-24] MEDS: DIAZEPAM 1 MG PO (21:21)
[2025-04-24] MEDS: SENNOSIDES 8.6 MG TABLET PO (21:21)
[2025-04-25] MEDS: ACETAMINOPHEN 500 MG TABLET PO (03:38)
[2025-04-25 04:41] VITALS: BP 111/60; PULSE 83; RESP 20; TEMP 36.6; O2SAT 92
[2025-04-25] MEDS: LEVOTHYROXINE SODIUM 88 MCG TABLET PO (05:30)
[2025-04-25 06:44] LABS: Hematocrit 32.7 % (37.0-47.0); Hemoglobin 10.3 g/dL (12.0-15.0); Immature Platelet Fraction Pct 9.7 % (0.9-11.2); Mean Corpuscular HGB Conc 31.5 g/dl (32-36); Mean Corpuscular Hemoglobin 28.7 pg (26-34); Mean Corpuscular Volume 91.1 fl (80-100); Platelet Count Result 54 k/mm3 (150-375); Red Blood Count 3.59 M/mm3 (4.2-5.4); White Blood Count 2.8 K/mm3 (4.5-10.0)
[2025-04-25 07:03] LABS: Alanine Aminotransferase 21 U/L (6-35); Albumin Level 3.8 g/dL (3.5-5.1); Alkaline Phosphatase 103 U/L (38-126); Anion Gap 5 mmol/L (4-12); Aspartate Amino Transferase 30 U/L (14-36); Bilirubin,Total 0.6 mg/dL (0.2-1.3); Blood Urea Nitrogen 20 mg/dL (7-17); Calcium 9.0 mg/dL (8.4-10.2); Carbon Dioxide 29 mmol/L (22-30); Chloride 103 mmol/L (98-107); Estimated CRCL calculation 45 ml/min; Estimated Glomerular Filt Rate 52; Glucose 127 mg/dL (65-110); Potassium 4.6 mmol/L (3.4-5.0); Sodium 137 mmol/L (137-145); Total Protein 6.8 g/dL (6.3-8.2)
[2025-04-25 08:00] VITALS: O2SAT 92
[2025-04-25] MEDS: LIDOCAINE 5% PATCH 1 PATCH TRANSDERM (08:45)
[2025-04-25] MEDS: NICOTINE (*PBKC) 14 MG PATCH 1 PATCH TRANSDERM (08:46)
[2025-04-25] MEDS: BUPRENORPHINE HCL (*CRX) 2 MG SUBLINGUAL TABLET 4 MG SUBLINGUAL ×3 (08:47→16:20)
[2025-04-25] MEDS: ATORVASTATIN 20 MG TABLET PO (08:47)
[2025-04-25] MEDS: DIAZEPAM 1 MG PO ×4 (08:47→21:36)
[2025-04-25] MEDS: PANTOPRAZOLE 40 MG TABLET PO (08:48)
[2025-04-25] MEDS: oxyBUTYnin CHLORIDE XL 5 MG TAB.ER.24 PO (08:48)
[2025-04-25] MEDS: ALBUTEROL SULFATE (*SP) AEROSOL 1 PUFF INHALATION (10:01)
[2025-04-25 10:05] VITALS: PULSE 83; RESP 16
[2025-04-25] MEDS: KETOROLAC 15 MG/ML VIAL (*BKC) IV PUSH (13:10)
--- NOTE | 2025-04-25 13:55 | P.PNIM_ITS ---
Progress Note: A&P Assessment and Plan (1) Recurrent falls: Code(s): R29.6 - Repeated falls Status: Acute (2) Generalized weakness: Code(s): R53.1 - Weakness Status: Acute (3) MARCIANO (acute kidney injury): Code(s): N17.9 - Acute kidney failure, unspecified Status: Acute (4) Dehydration, mild: Code(s): E86.0 - Dehydration Status: Acute (5) Right knee injury: Code(s): S89.91XA - Unspecified injury of right lower leg, initial encounter Status: Acute (6) Injury of knee, left: Code(s): S89.92XA - Unspecified injury of left lower leg, initial encounter Status: Acute (7) Hypertension: Code(s): I10 - Essential (primary) hypertension Status: Acute (8) Anxiety and depression: Code(s): F41.9 - Anxiety disorder, unspecified; F32.A - Depression, unspecified Status: Acute (9) Substance use disorder: Code(s): F19.90 - Other psychoactive substance use, unspecified, uncomplicated Status: Acute Plan * Recurrent fall/generalized weakness Possibly due to Valium Decreased dose of Valium from 2 mg q.i.d. to 1 mg q.i.d. Needs slow tapering to avoid benzodiazepine withdrawal seizures CTA head negative for acute intracranial bleed X-ray of hip/pelvis and the knee negative for acute fracture Weakness likely secondary to dehydration Physical therapy for placement She might need skilled PT upon discharge Pain control with lidocaine patch Voltaren gel * MARCIANO Avoid nephrogenic agents including NSAIDs and contrast BMP daily and oral intake * Dehydration She has adequate oral intake * Hypertension Continue Hydrochlorothiazide 12.5 mg daily and lisinopril 10 mg daily * Substance use disorder Continue Buprenorphine 4 mg sublingual * Anxiety/ depression Continue Valium and Zyprexa * Hypothyroidism Continue levothyroxine * Dyslipidemia Continue atorvastatin Subjective Date/time seen: 04/25/25 13:55 Interval history: had a long discussion with patient about going rehab. Patient is very high risk for fall due to high dose of Valium x4 times a day. Decreased the dose of Valium but needs slow tapering.Patient wants to decide by tomorrow.No opiods due to subxone .Needs decrease in the frequency and dosage as OP. Review of Systems Review of Systems: All systems reviewed & are unremarkable except as noted in HPI and below Exam Narrative: APPEARANCE: Comfortable, anxious at times EYES: EOMI HEENT: Normocephalic, atraumatic, OMM RESPIRATORY: No respiratory distress Clear to auscultation bilaterally with no r honchi wheezing or rales. CARDIOVASCULAR: RRR, S1 and S2 without murmurs rubs or gallops. ABDOMINAL: Soft, nontender, nondistended, no rebound or guarding MSK: range of motion to the left lower extremity is limited due to pain of the left hip. No bony tenderness throughout either leg and no deformities. NEURO: Awake and alert. Following commands, speech normal, no focal deficits SKIN:: Warm, dry. No rashes lesions or abrasions PSYCHIATRIC: Normal affect/mood, Objective Data Vital Signs Vital Signs: Vital Signs - 24 hr 04/24/25 14:00 04/24/25 20:00 04/24/25 20:22 Temperature 98.1 F 98.3 F Pulse Rate 91 92 Respiratory Rate 18 20 Blood Pressure 126/69 146/78 H Pulse Oximetry 90 91 Oxygen Delivery Room Air Fraction of Inspired Oxygen 04/25/25 04:41 04/25/25 08:00 04/25/25 10:05 Temperature 97.9 F Pulse Rate 83 83 Respiratory Rate 20 16 Blood Pressure 111/60 Pulse Oximetry 92 92 Oxygen Delivery Room Air Fraction of Inspired Oxygen 21 Intake/Output Intake/Output: Intake & Output 04/22/25 04/23/25 04/24/25 04/25/25 23:59 23:59 23:59 23:59 Intake Total 1000 820 970 440 Output Total 150 Balance 1000 670 970 440 Meds/Results Medications: Active Medications Generic Name Dose Route Start Last Admin Trade Name Freq PRN Reason Stop Dose Admin Acetaminophen 500 mg 04/23/25 06:27 04/25/25 03:38 Acetaminophen 500 Mg Tablet PO 500 mg Q4H PRN Administration Mild Pain (1-3) or Fever Albuterol 1 puff 04/23/25 12:45 04/25/25 10:01 Albuterol Sulfate (*Sp) Aerosol 1 Puff INHALATION 1 puff Q4HRT PRN Administration Shortness Of Breath Atorvastatin Calcium 20 mg 04/24/25 09:00 04/25/25 08:47 Atorvastatin 20 Mg Tablet PO 20 mg DAILY CECE Administration Buprenorphine HCl 4 mg 04/23/25 17:00 04/25/25 13:10 Buprenorphine Hcl (*Crx) 2 Mg Sublingual Tablet SUBLINGUAL 4 mg TID CECE Administration Diazepam 1 mg 04/24/25 21:00 04/25/25 13:10 Diazepam (*Crx) 1 Mg Tablet PO 1 mg QID [facility] Administration Diclofenac Sodium 1 applic 04/23/25 17:00 04/25/25 13:13 Diclofenac Sodium 1% 100 Gm Gel (*Bkc) TOPICAL Not Given QID CECE Hydrochlorothiazide 12.5 mg 04/24/25 09:00 04/25/25 08:48 Hydrochlorothiazide 12.5 Mg Capsule PO 12.5 mg QAM [facility] Administration Levothyroxine Sodium 88 mcg 04/24/25 06:30 04/25/25 05:30 Levothyroxine Sodium 88 Mcg Tablet PO 88 mcg DAILY@0630 [facility] Administration Lidocaine 1 patch 04/23/25 09:00 04/25/25 08:45 Lidocaine 5% Patch TRANSDERM 1 patch DAILY [facility] Administration Lisinopril 10 mg 04/24/25 09:00 04/25/25 08:48 Lisinopril 10 Mg Tablet PO 10 mg QAM [facility] Administration Nicotine 1 patch 04/23/25 06:30 04/25/25 08:46 Nicotine (*Pbkc) 14 Mg Patch TRANSDERM 1 patch DAILY [facility] Administration Olanzapine 20 mg 04/24/25 09:00 04/25/25 08:48 Olanzapine 5 Mg Tablet PO 20 mg DAILY [facility] Administration Oxybutynin Chloride 5 mg 04/24/25 09:00 04/25/25 08:48 Oxybutynin Chloride Xl 5 Mg Tab.Er.24 PO 5 mg DAILY [facility] Administration Pantoprazole Sodium 40 mg 04/24/25 09:00 04/25/25 08:48 Pantoprazole 40 Mg Tablet PO 40 mg QAM [facility] Administration Senna 8.6 mg 04/23/25 21:00 04/24/25 21:21 Sennosides 8.6 Mg Tablet PO 8.6 mg HS [facility] Administration Radiology Results: ITS Impressions Hip/Pelvis X-Ray 04/23/25 07:12 IMPRESSION: 1: NO ACUTE BONE OR JOINT ABNORMALITY IDENTIFIED. Knee X-Ray 04/23/25 07:15 Impression: 1: Moderate medial compartmental osteoarthritis. Chest X-Ray 04/23/25 08:00 IMPRESSION: 1. No acute cardiopulmonary disease. Head CT 04/23/25 08:21 IMPRESSION: 1. No acute intracranial abnormality. Labs Labs: Laboratory Results - last 24 hr 04/25/25 06:05 WBC 2.8 L RBC 3.59 L Hgb 10.3 L Hct 32.7 L MCV 91.1 MCH 28.7 MCHC 31.5 L RDW 14.1 Plt Count 54 L MPV TNP % Immature Plt Fraction 9.7 Sodium 137 Potassium 4.6 Chloride 103 Carbon Dioxide 29 Anion Gap 5 BUN 20 H Creatinine 1.05 H Estim Creat Clear Calc 45 Estimated GFR 52 L Glucose 127 H Calcium 9.0 Total Bilirubin 0.6 AST 30 ALT 21 Alkaline Phosphatase 103 Total Protein 6.8 Albumin 3.8 Hospitalist MIPS Advance Care Plan I have confirmed that the patient's Advanced Care Plan is present, code status is documented, or surrogate decision maker is listed in patient medical record.: Yes Medication Reconciliation I have utilized all available resources to obtain, update and review the patients current medications (includes all prescriptions, OTC, herbals, cannabis, and nutritional supplements).: Yes
[2025-04-25 14:00] VITALS: BP 115/65; PULSE 83; RESP 18; TEMP 36.6; O2SAT 93
[2025-04-25 16:36] LABS: Hematocrit 32.7 % (37.0-47.0); Hemoglobin 10.3 g/dL (12.0-15.0); Immature Platelet Fraction Pct 8.3 % (0.9-11.2); Mean Corpuscular HGB Conc 31.5 g/dl (32-36); Mean Corpuscular Hemoglobin 28.5 pg (26-34); Mean Corpuscular Volume 90.6 fl (80-100); Platelet Count Result 54 k/mm3 (150-375); Red Blood Count 3.61 M/mm3 (4.2-5.4); White Blood Count 2.5 K/mm3 (4.5-10.0)
[2025-04-25 16:58] LABS: Alanine Aminotransferase 23 U/L (6-35); Albumin Level 4.0 g/dL (3.5-5.1); Alkaline Phosphatase 102 U/L (38-126); Anion Gap 7 mmol/L (4-12); Aspartate Amino Transferase 31 U/L (14-36); Bilirubin,Total 0.5 mg/dL (0.2-1.3); Blood Urea Nitrogen 22 mg/dL (7-17); Calcium 8.9 mg/dL (8.4-10.2); Carbon Dioxide 27 mmol/L (22-30); Chloride 105 mmol/L (98-107); Estimated CRCL calculation 46 ml/min; Estimated Glomerular Filt Rate 53; Glucose 126 mg/dL (65-110); Potassium 4.6 mmol/L (3.4-5.0); Sodium 139 mmol/L (137-145); Total Protein 7.1 g/dL (6.3-8.2)
[2025-04-25] MEDS: SENNOSIDES 8.6 MG TABLET PO (21:36)
[2025-04-25 22:00] VITALS: BP 120/72; PULSE 84; RESP 16; TEMP 36.6; O2SAT 93
[2025-04-25 23:23] VITALS: O2SAT 93
[2025-04-26 05:38] VITALS: BP 120/63; PULSE 88; RESP 16; TEMP 36.2; O2SAT 90
[2025-04-26] MEDS: ACETAMINOPHEN 500 MG TABLET PO (05:38)
[2025-04-26] MEDS: LEVOTHYROXINE SODIUM 88 MCG TABLET PO (05:40)
[2025-04-26 06:40] LABS: Hematocrit 33.7 % (37.0-47.0); Hemoglobin 10.4 g/dL (12.0-15.0); Immature Platelet Fraction Pct 8.6 % (0.9-11.2); Mean Corpuscular HGB Conc 30.9 g/dl (32-36); Mean Corpuscular Hemoglobin 28.2 pg (26-34); Mean Corpuscular Volume 91.3 fl (80-100); Platelet Count Result 55 k/mm3 (150-375); Red Blood Count 3.69 M/mm3 (4.2-5.4)
[2025-04-26 06:46] LABS: White Blood Count 3.0 K/mm3 (4.5-10.0)
[2025-04-26 07:05] LABS: Alanine Aminotransferase 23 U/L (6-35); Albumin Level 3.9 g/dL (3.5-5.1); Alkaline Phosphatase 112 U/L (38-126); Anion Gap 6 mmol/L (4-12); Aspartate Amino Transferase 33 U/L (14-36); Bilirubin,Total 0.7 mg/dL (0.2-1.3); Blood Urea Nitrogen 20 mg/dL (7-17); Calcium 9.0 mg/dL (8.4-10.2); Carbon Dioxide 27 mmol/L (22-30); Chloride 104 mmol/L (98-107); Estimated CRCL calculation 45 ml/min; Estimated Glomerular Filt Rate 51; Glucose 124 mg/dL (65-110); Potassium 4.4 mmol/L (3.4-5.0); Sodium 137 mmol/L (137-145); Total Protein 7.1 g/dL (6.3-8.2)
[2025-04-26] MEDS: BUPRENORPHINE HCL (*CRX) 2 MG SUBLINGUAL TABLET 4 MG SUBLINGUAL ×2 (09:02→14:13)
[2025-04-26] MEDS: PANTOPRAZOLE 40 MG TABLET PO (09:03)
[2025-04-26] MEDS: NICOTINE (*PBKC) 14 MG PATCH 1 PATCH TRANSDERM (09:03)
[2025-04-26] MEDS: DIAZEPAM 1 MG PO ×2 (09:03→14:12)
[2025-04-26] MEDS: ATORVASTATIN 20 MG TABLET PO (09:03)
[2025-04-26] MEDS: oxyBUTYnin CHLORIDE XL 5 MG TAB.ER.24 PO (09:03)
[2025-04-26] MEDS: DICLOFENAC SODIUM 1% 100 GM GEL (*BKC) 1 APPLIC TOPICAL ×2 (09:04→14:13)
[2025-04-26] MEDS: LIDOCAINE 5% PATCH 1 PATCH TRANSDERM (09:04)
--- NOTE | 2025-04-26 15:12 | P.DS_ITS ---
DS: Admitting Diagnosis Discharge Date 04/26/2025 Admitting Diagnosis Multiple falls DS: Discharge Diagnosis Discharge Diagnosis (1) Recurrent falls: Code(s): R29.6 - Repeated falls Status: Acute (2) Generalized weakness: Code(s): R53.1 - Weakness Status: Acute (3) MARCIANO (acute kidney injury): Code(s): N17.9 - Acute kidney failure, unspecified Status: Acute (4) Dehydration, mild: Code(s): E86.0 - Dehydration Status: Acute (5) Right knee injury: Code(s): S89.91XA - Unspecified injury of right lower leg, initial encounter Status: Acute (6) Injury of knee, left: Code(s): S89.92XA - Unspecified injury of left lower leg, initial encounter Status: Acute (7) Hypertension: Code(s): I10 - Essential (primary) hypertension Status: Acute (8) Anxiety and depression: Code(s): F41.9 - Anxiety disorder, unspecified; F32.A - Depression, unspecified Status: Acute (9) Substance use disorder: Code(s): F19.90 - Other psychoactive substance use, unspecified, uncomplicated Status: Acute DS: Summary Hospital Course Hospital Course: Aurora Hill is a 70 year old female with pmhx of COPD, history of polysubstance use disorder, hypothyroidism, dyslipidemia, hypertension, overacti ve bladder who presented last night to the ED for recurrent fall. Hip and myc-x-ray of hip/pelvis and Knee negative for acute fracture or malalignment. CT head shows no acute intracranial abnormality or skull fracture. Patient endorses left hip pain. She is using lidocaine patch for pain control. No electrolyte abnormalities in her chemistry lab results. Patient has been treated for the following conditions in the hospital: * Recurrent fall/generalized weakness Possibly due to Valium Decreased dose of Valium from 2 mg q.i.d. to 1 mg q.i.d. Needs slow tapering to avoid benzodiazepine withdrawal seizures CTA head negative for acute intracranial bleed X-ray of hip/pelvis and the knee negative for acute fracture Weakness likely secondary to dehydration Physical therapy for placement She might need skilled PT upon discharge Pain control with lidocaine patch Voltaren gel * MARCIANO Avoid nephrogenic agents including NSAIDs and contrast BMP daily and oral intake * Dehydration She has adequate oral intake * Hypertension Continue Hydrochlorothiazide 12.5 mg daily and lisinopril 10 mg daily * Substance use disorder Continue Buprenorphine 4 mg sublingual * Anxiety/ depression Continue Valium and Zyprexa * Hypothyroidism Continue levothyroxine * Dyslipidemia Continue atorvastatin 04/26/2025: During the evaluation patient requested to be discharged tomorrow but did she change her mind and want to be discharged [facility]. In spite of multiple recommendation from the nursing team and myself to have a safe discharge to SNF, patient declined. By the time went upstairs to sign her script ,patient left AMA in spite of nursing team recommendation to stay 5 minutes more to complete the paperwork. I called the daughter and updated that her mother left AMA without any scripts. Patient has a high risk of fall and re-admission. Patient needs tapering dose of Valium as outpatient. Patient also takes Suboxone. Status at Discharge Cognitive/behavioral status at discharge: Guarded prognosis Time Spent with Patient Time attestation: Total time spent providing and/or coordinating discharge services: 45 minutes Exam Narrative: APPEARANCE: Comfortable, anxious at times EYES: EOMI HEENT: Normocephalic, atraumatic, OMM RESPIRATORY: No respiratory distress Clear to auscultation bilaterally with no rhonchi wheezing or rales. CARDIOVASCULAR: RRR, S1 and S2 without murmurs rubs or gallops. ABDOMINAL: Soft, nontender, nondistended, no rebound or guarding MSK: range of motion to the left lower extremity is limited due to pain of the left hip. No bony tenderness throughout either leg and no deformities. NEURO: Awake and alert. Following commands, speech normal, no focal deficits SKIN:: Warm, dry. No rashes lesions or abrasions PSYCHIATRIC: Normal affect/mood, DS: Data Data Completed and Pending Labs on day of discharge: Labs from last 24 hours 04/26/25 04/25/25 06:11 16:29 WBC 3.0 L 2.5 L RBC 3.69 L 3.61 L Hgb 10.4 L 10.3 L Hct 33.7 L 32.7 L MCV 91.3 90.6 MCH 28.2 28.5 MCHC 30.9 L 31.5 L RDW 14.0 14.1 Plt Count 55 L 54 L MPV 13.3 H 12.4 H % Immature Plt Fraction 8.6 8.3 Sodium 137 139 Potassium 4.4 4.6 Chloride 104 105 Carbon Dioxide 27 27 Anion Gap 6 7 BUN 20 H 22 H Creatinine 1.07 H 1.03 H Estim Creat Clear Calc 45 46 Estimated GFR 51 L 53 L Glucose 124 H 126 H Calcium 9.0 8.9 Total Bilirubin 0.7 0.5 AST 33 31 ALT 23 23 Alkaline Phosphatase 112 102 Total Protein 7.1 7.1 Albumin 3.9 4.0 Discharge Plan Discharge Attending physician on discharge: Tristian Rolon Discharging Clinician: Tristian Rolon Anticipated Discharge Date/Time: 04/26/25 14:43 Patient Disposition: Left Against Medical Advice Activity: as tolerated and other - see discharge instructions Diet: regular Discharge Instructions: Patient left AMA Care Coordination: [facility] to follow pt for PT/OT upon discharge. [facility] will be calling patient to arrange admission appointment. law office manager will fax discharge instructions to [facility]. [facility] #[phone] Patient has a high risk of fall. Patient diazepam dosage has been reduced from 2 mg to 1 mg q.i.d. in the hospital Recommend weaning diazepam as outpatient. Check blood pressure 1 to 2 times a day. Record and bring into your doctor for review. Call your doctor if your blood pressure is greater than 180/110 or less than 90/45. Walk with cane or other assist device. Take precautions to avoid falls. Rise slowly from a lying or sitting position. Pause before standing or walking. Contact your doctor or call 911 and come to the Emergency Room if you have any type of trauma, lightheadedness with standing or other worrisome symptoms. Avoid NSAIDs (ibuprofen, naproxen, Aleve). Tylenol is safe to take. Follow-up with your primary care provider in 1-2 weeks. Please call for appointment. Follow-up with Cardiology in 2-4 weeks. Please call for an appointment. Thank you for using [facility] for your health care needs. Patient Instructions: Antibiotic Form Patient Language: Greek Stand Alone Forms: General Discharge Information Follow-up/Referrals: Carlos Arevalo MD [Primary Care Provider, Hospitalist] Discharge Medications: New diazepam [Valium] 2 mg tablet 1 mg PO QID Qty: 10 0RF Continued albuterol sulfate 90 mcg/actuation HFA aerosol inhaler 90 mcg INHALATION USEASDIRECTD aspirin 81 mg Tablet 81 mg PO DAILY olanzapine 20 mg tablet 20 mg PO DAILY lisinopril-hydrochlorothiazide 10-12.5 mg tablet 1 tablet PO DAILY atorvastatin 20 mg tablet 20 mg PO DAILY buprenorphine-naloxone 4-1 mg film 1 film sublingual TID bupropion HCl 300 mg tablet extended release 24 hr 300 mg PO DAILY clopidogrel 75 mg tablet 75 mg PO DAILY levothyroxine 88 mcg tablet 88 mcg PO DAILY omeprazole 20 mg capsule,delayed release(DR/EC) 20 mg PO DAILY oxybutynin chloride 5 mg tablet extended release 24hr 5 mg PO DAILY ondansetron 4 mg tablet,disintegrating 4 mg PO QID PRN (Reason: nausea and vomiting) sennosides [Laxative (sennosides)] 8.6 mg tablet 8.6 mg PO HS Discontinued diazepam 2 mg tablet 2 mg PO QID Date of admission: 04/25/25 16:11 Primary Care Provider: Carlos Arevalo Admitting Provider: Janessa Hazel Attending physician on admission: Janessa Hazel Condition: Stable
--- NOTE | 2025-04-26 15:22 | PC.NURSE ---
Patient left without some discharge paperwork, patient refused to wait for prescription for Diazepam and discharged without it even though the patient was advised against it. Provider notified.
== END 2025-04-26 15:02 | disposition left against medical advice (07) | DRG 641 ==
LOC: ANHED 23:15 → ANH3MEDSUR 04-23 02:38
PROVIDERS: Student in an Organized Health Care Education/Training Program; Admitting Provider Internal Medicine; Emergency Provider Registered Nurse; PCP Internal Medicine; Visit Provider General Practice
DX: E86.0 Dehydration (principal); N17.9 Acute kidney failure, unspecified; R53.1 Weakness; T42.4X5A Adverse effect of benzodiazepines, initial encounter; R29.6 Repeated falls; I10 Essential (primary) hypertension; F41.8 Other specified anxiety disorders; F19.90 Other psychoactive substance use, unspecified, uncomplicated; J44.9 Chronic obstructive pulmonary disease, unspecified; E03.9 Hypothyroidism, unspecified; M25.562 Pain in left knee; M25.561 Pain in right knee; M25.552 Pain in left hip; W19.XXXA Unspecified fall, initial encounter; I48.91 Unspecified atrial fibrillation; E78.5 Hyperlipidemia, unspecified; N32.81 Overactive bladder; M81.0 Age-related osteoporosis without current pathological fracture; F17.210 Nicotine dependence, cigarettes, uncomplicated; Z90.49 Acquired absence of other specified parts of digestive tract; Z90.710 Acquired absence of both cervix and uterus
CPT/HCPCS: 36415; 70450; 71045; 73502; 73562; 80048; 80053; 80307; 81003; 82550; 82948; 85025; 85027; 85055; 85610; 85730; 87637; 93005; 94640; 96361; 96374; 96376; 97110; 97116; 97161; 97166; 97530; 97535; 99285; A9270; G0378; J1885; J7030